=== PATIENT | male | born 1965 | race Caucasian/White ===

== ENCOUNTER → 2016-07-16 | Outpatient (CLI) | payer OTHER ==
[~2016-07-16] MED LIST: AMT50 PO; LISI-725 PO; LVT/20 PO; OXYC-57 PO
[2016-07-16 10:37] LABS: CHOLESTEROL/HDL RATIO 6.4
== END | disposition home or self-care (01) ==
LOC: C.LAB 09:03
DX: E78.5 Hyperlipidemia, unspecified (principal)

== ENCOUNTER → 2016-11-12 | Outpatient (CLI) | payer OTHER ==
[2016-11-12 09:37] LABS: MEAN CELL VOLUME 94.1 fL (80-100); MEAN CORPUSCULAR HEMOGLOBIN 32.6 pg (25-34); MEAN CORPUSCULAR HGB CONC 34.7 g/dl (32-36); PLATELET COUNT 206 K/uL (130-400); RED BLOOD COUNT 4.78 M/uL (4.7-6.1); WHITE BLOOD COUNT 8.08 K/uL (4.8-10.8)
[2016-11-12 10:10] LABS: ALT/SGPT 32 U/L (12-78); AST/SGOT 14 U/L (15-37); BLOOD UREA NITROGEN 16 mg/dl (7-18); BUN/CREATININE RATIO 13.1 (10-20); CARBON DIOXIDE 33 mmol/L (21-32); CHLORIDE 102 mmol/L (98-107); GLUCOSE 95 mg/dl (70-99); POTASSIUM 4.3 mmol/L (3.5-5.1); SODIUM 138 mmol/L (136-145)
[2016-11-12 10:13] LABS: CHOLESTEROL 253 mg/dl (0-200); HDL CHOLESTEROL 63 mg/dl; LDL CHOLESTEROL CALCULATED 149 mg/dl; TRIGLYCERIDES 206 mg/dl (0-150); VERY LOW DENSITY LIPOPROT CALC 41 mg/dl
== END | disposition home or self-care (01) ==
LOC: C.LAB 08:38
DX: E78.5 Hyperlipidemia, unspecified (principal)

== ENCOUNTER → 2017-06-10 | Outpatient (CLI) | payer OTHER ==
[2017-06-10 12:30] LABS: BLOOD UREA NITROGEN 18 mg/dl (7-18); CALCIUM 8.9 mg/dl (8.5-10.1); CARBON DIOXIDE 27 mmol/L (21-32); CREATININE 1.18 mg/dl (0.60-1.40); GLUCOSE 110 mg/dl (70-99); POTASSIUM 4.2 mmol/L (3.5-5.1); SODIUM 137 mmol/L (136-145)
[2017-06-10 12:33] LABS: CHOLESTEROL 212 mg/dl (0-200); LDL CHOLESTEROL CALCULATED 143 mg/dl
== END | disposition home or self-care (01) ==
LOC: C.LAB 10:05
DX: E78.5 Hyperlipidemia, unspecified (principal); I10 Essential (primary) hypertension

== ENCOUNTER → 2017-06-26 | Outpatient (CLI) | payer OTHER ==
--- NOTE | 2017-06-26 11:31 | DIAGNOSTIC IMAGING REPORT ---
LUMBAR SPINE W/O CONTRAST CLINICAL HISTORY: 51 years-old Male presenting with L2/L3 LUMBAR RADICULOPATHY INCR SYMPTOMS. TECHNIQUE: Multisequence, multiplanar MR imaging of the lumbar spine was performed without the use of intravenous contrast. IV contrast: None. COMPARISON: CT from 08/27/2013. FINDINGS: Localizer images: Posterior transpedicular screw and clint fixation of L2-3. Straightening of normal lumbar lordosis possibly positional. Vertebral bodies maintain normal height, alignment, and bone marrow signal intensity. Allowing for susceptibility artifact at the transpedicular screws at L2-3, no surrounding bony edema is evident. An interbody spacer is noted at the L2-3 disc space. Intervertebral disc desiccation evident at L3-4 and L4-5 without significant height loss. L1-2 and L5-S1 discs are preserved. L1-2: Minimal disc bulge results in minimal effacement of the anterior thecal sac. Mild bilateral neural foraminal narrowing. L2-3: No significant spinal canal or neural foraminal narrowing. L3-4: Facet arthropathy results in moderate right and mild left neural foraminal narrowing. No second spinal canal narrowing. L4-5: Facet arthropathy and minimal disc bulge results in mild right and moderate left neural foraminal narrowing. No second spinal canal narrowing. L5-S1: No significant neural foraminal or spinal canal narrowing. The spinal cord is in good position above the superior endplate of L1. Cauda equina normal in morphology. Paraspinal soft tissues within normal limits. IMPRESSION: 1. Postsurgical changes of L2-3 posterior fusion with interbody spacer. No hardware complication. 2. Multilevel neural foraminal narrowing most significant at L3-4 on the right. Further details as above. Electronically signed by: Sander Joshi M.D. 06/26/2017 11:29 AM Dictated Date/Time: 06/26/2017 11:24 AM
== END | disposition home or self-care (01) ==
LOC: C.MRI 10:38
DX: M54.16 Radiculopathy, lumbar region (principal)

== ENCOUNTER 2020-12-21 14:56 | Inpatient (IN) ==
[2020-12-21] MEDS ORDERED: DAPTOmycin 575 MG in SYRINGE 0 ML IV ONE (15:14)
[2020-12-21] MEDS ORDERED: SODIUM CHLORIDE 0.9% 1000ML 1,000 ML IV SCH ×2 (15:15)
[2020-12-21] MEDS ORDERED: ONDANSETRON INJ 2 MG/ML 2 ML VIAL IV STA (15:17)
--- NOTE | 2020-12-21 15:17 | Emergency Department Note ---
Impression & Plan Cellulitis of multiple sites of right hand and fingers, Cellulitis of arm, right ED Provider Note INFORMANT: Patient and ED PROVIDER(S): Nathaniel Desai MD CHIEF COMPLAINT: Right hand infection PLAN: Disposition: Admitted Condition: Good Outpatient prescription management: none Referral: None MEDICAL DECISION MAKING: Patient presented to the emergency department because of right arm and hand cellulitis. He was quite uncomfortable. He had good flexion but had difficulty extending his hand and fingers. The patient had no obvious purulent drainage or crepitus. He was tender up through the forearm and biceps area. An IV was established. The patient's lactate and CBC revealed elevations of the white blood cell count and serum lactate. He was hydrated. He was given IV clindamycin and IV daptomycin. He received IM Rocephin from his PCP. He did have cultures done. The patient underwent CT imaging of the right upper extremity. No abscess or necrotizing fasciitis seen. There was findings consistent with cellulitis as well as possible deeper space infections. I did discuss this with Dr. Mark of orthopedics. In light of the lack of abscess or findings of necrotizing fasciitis and no flexor involvement he recommended medicine admission and IV antibiotics. The case was discussed with Dr. lind. Patient will be admitted by internal medicine. Patient was reassessed frequently. He did require several doses of IV Dilaudid. His tetanus was up-to-date. He had some slight increase in his swelling during his time in the emergency department but was still doing well. Triage Nursing notes reviewed and agree them. Vital Signs: reviewed and remarkable for hypertension Differential diagnosis: Sepsis, Cellulitis, abscess, Necrotizing fasciitis, pneumonia, metabolic, electrolyte abnormalities, FB, intracerebral event, toxicologic, as well as other pathologies. Diagnostics interpreted by me: ECG: Rate: 82 Rhythm:Normal sinus [place]:Normal QRS: Low voltage ST segements:No elevation or depression Other:No PACs or PVCs Cardiac Monitoring: Cardiac monitoring ordered by me: The patient was placed on continuous cardiac monitoring and observed. It revealed a normal sinus rhythm at 69 beats per minute without ectopy or evidence of dysrhythmia. Imaging studies: CT scans of the hand, forearm, and humerus were performed. Findings consistent with cellulitis and deep space infection without evidence of necrotizing fasciitis or abscess. I refer you to the EMR for further details. HPI: The patient is a 55 year old male who presents to the Emergency Room with complaints of right hand infection. This started 5 days ago and is rapidly worsening. The patient also notes the following associated symptoms, pain and swelling extending up the right arm to the shoulder and fevers. The patient has been given IM rocephin by PCP for relieving factors. Current pain is rated as 7/10. PCP concerned for nec fasc and directed pt to emergency department. Pt denies LOC, headache, diaphoresis, visual changes, neck pain, chest pain, breathing difficulties, nausea, vomiting, abdominal pain, back pain, melena, hematochezia, urinary symptoms, numbness, weakness, lymphadenopathy, or other complaints. ROS: See above HPI for pertinent positives & negatives. A total of 10 systems reviewed and were otherwise negative. PAST MEDICAL HISTORY:See Below , HTN PAST SURGICAL HISTORY:See Below, back surgery FAMILY HISTORY:See Below SOCIAL HISTORY:See Below, HOME MEDICATIONS:See Below ALLERGIES:See Below VITALS:See Below PHYSICAL EXAMINATION: GENERAL: Awake, alert, uncomfortable -appearing, in no distress HENT: Normocephalic, atraumatic. Oropharynx unremarkable. EYES: Normal conjunctiva. Sclera non-icteric. NECK: Inspection normal. Non-tender. Supple. No nuchal rigidity. FROM. No masses. RESPIRATORY: Clear to auscultation. No wheezes. No rales. Normal respiratory effort. CARDIAC: Tachycardic rate. Normal rhythm. No murmurs. No rubs. Extremities warm and well perfused. Pulses equal. No JVD. GI: Soft, non-distended. No tenderness to palpation. No rebound or guarding. No masses. RECTAL: Deferred. MUSCULOSKELETAL: Large amount of swelling in the right hand and forearm. TTP up the right UE to the axillae. Warm to the touch. Chest examination reveals no tenderness. The back is symmetrical on inspection without obvious abnormality. There is no CVA tenderness to palpation. No joint edema. LOWER EXTREMITIES: Calves are equal size bilaterally and non-tender. No edema. No discoloration. NEURO: Normal sensorium. No sensory or motor deficits noted. SKIN: No rash or jaundice noted. Nathaniel Desai MD Past Med/Surg History Medical History Asthma HTN (hypertension), benign Lumbar radicular pain Sarcoidosis Spinal cord stimulator status had stimulator implanted, was not effective so it was explanted Surgical History History of back surgery L2-[address] Romero Social History Smoking Status: Never smoker Hx Alcohol Use: No Hx Substance Use: No Preferred Language: Mongolian Communication Ability: Effective Visual Impairment: No Limitations Hearing Ability: Normal Customer Solutions Coordinator Required: No Beliefs That Will Affect Care: None marital status: Current Living Situation: Spouse current occupational status: unemployed current occupation: Delivers bargain sheet once weekly Feels Safe at Home: Yes Safety Concerns: Feels Safe At This Time Assistive Devices: None Allergies Allergies Allergy/AdvReac Type Severity Reaction Status Date / Time No Known Allergies Allergy Unknown Verified 12/21/20 16:17 Home Meds Home Medications Medication Instructions Recorded Confirmed amitriptyline 100 mg tablet 200 mg PO HS 03/19/18 12/21/20 medical marijuana 1 dose PO UD 06/03/18 12/21/20 oxycodone-acetaminophen 5 mg-325 1 tab PO Q4H PRN 06/03/18 12/21/20 mg tablet (Percocet) lisinopril 20 1 tab PO DAILY 12/21/20 12/21/20 mg-hydrochlorothiazide 25 mg tablet sildenafil (pulm.hypertension) 20 40 - 100 mg PO UD 12/21/20 12/21/20 mg tablet Results & Data (ED) Vital Signs Vital Signs - 24 hr 12/21/20 15:05 12/21/20 15:12 12/21/20 16:06 Temperature 36.6 C Temperature Source Oral Pulse Rate 106 H Pulse Rate [Apical] Pulse Rate from SpO2 Sensor Respiratory Rate 22 18 Respiratory Effort / Characteristics Non-Labored Spontaneous Non-Labored Respiratory Depth Normal Respiratory Pattern Regular Blood Pressure 136/82 Blood Pressure [Left Arm] Blood Pressure Mean 100 Blood Pressure Mean [Left Arm] Blood Pressure Position Sitting Pulse Oximetry 95 96 Oxygen Delivery Method Room Air Room Air Sepsis Recent Fever Within 48 Hours Yes Sepsis New/Unexplained Change in Mental Status N/A Sepsis Action Taken by Nursing Physician Notified 12/21/20 17:34 12/21/20 17:35 12/21/20 18:00 Temperature Temperature Source Pulse Rate Pulse Rate [Apical] 80 Pulse Rate from SpO2 Sensor 74 80 Respiratory Rate 24 18 15 Respiratory Effort / Characteristics Non-Labored Non-Labored Spontaneous Respiratory Depth Normal Respiratory Pattern Blood Pressure 143/85 H 136/83 Blood Pressure [Left Arm] 143/85 H Blood Pressure Mean 104 100 Blood Pressure Mean [Left Arm] 104 Blood Pressure Position Pulse Oximetry 96 94 96 Oxygen Delivery Method Room Air Sepsis Recent Fever Within 48 Hours Sepsis New/Unexplained Change in Mental Status Sepsis Action Taken by Nursing 12/21/20 18:30 12/21/20 19:00 12/21/20 19:31 Temperature 37.2 C Temperature Source Pulse Rate 74 Pulse Rate [Apical] Pulse Rate from SpO2 Sensor 81 74 92 H Respiratory Rate 19 11 L 14 Respiratory Effort / Characteristics Non-Labored Respiratory Depth Respiratory Pattern Blood Pressure 118/76 122/72 145/81 H Blood Pressure [Left Arm] Blood Pressure Mean 90 88 102 Blood Pressure Mean [Left Arm] Blood Pressure Position Pulse Oximetry 92 92 96 Oxygen Delivery Method Sepsis Recent Fever Within 48 Hours Sepsis New/Unexplained Change in Mental Status Sepsis Action Taken by Nursing 12/21/20 19:39 Temperature Temperature Source Pulse Rate Pulse Rate [Apical] Pulse Rate from SpO2 Sensor Respiratory Rate Respiratory Effort / Characteristics Non-Labored Respiratory Depth Respiratory Pattern Blood Pressure Blood Pressure [Left Arm] Blood Pressure Mean Blood Pressure Mean [Left Arm] Blood Pressure Position Pulse Oximetry Oxygen Delivery Method Sepsis Recent Fever Within 48 Hours Sepsis New/Unexplained Change in Mental Status Sepsis Action Taken by Nursing Laboratory Data Result diagrams: 12/21/20 15:30 12/21/20 15:30 Lab Results 12/21/20 12/21/20 12/21/20 Range/Units 15:30 15:30 15:30 WBC 15.49 H (4.8-10.8) K/uL RBC 3.70 L (4.7-6.1) M/uL Hgb 11.8 L (14.0-18.0) g/dL Hct 35.2 L (42-52) % MCV 95.1 (80-100) fL MCH 31.9 (25-34) pg MCHC 33.5 (32-36) g/dL RDW Std Deviation 47.6 H (36.4-46.3) fL RDW Coeff of Quin 13.7 (11.5-14.5) % Plt Count 208 (130-400) K/uL MPV 8.6 (7.4-10.4) fL Immature Gran % (Auto) 2.1 % Neut % (Auto) 91.8 % Lymph % (Auto) 4.3 % [place] % (Auto) 1.7 % Eos % (Auto) 0.0 % Baso % (Auto) 0.1 % Neut # (Auto) 14.23 H (1.4-6.5) K/uL Lymph # (Auto) 0.67 L (1.2-3.4) K/uL [place] # (Auto) 0.26 (0.11-0.59) K/uL Eos # (Auto) 0.00 (0-0.5) K/uL Baso # (Auto) 0.01 (0-0.2) K/uL Immature Gran # (Auto) 0.32 H (0.00-0.02) K/uL PT 9.8 (9.0-12.0) Seconds INR 1.0 (0.9-1.1) APTT 22.5 (21.0-31.0) Seconds PTT Ratio 0.9 Sodium 142 (136-145) mmol/L Potassium 3.2 L (3.5-5.1) mmol/L Chloride 104 (98-107) mmol/L Carbon Dioxide 30 (21-32) mmol/L Anion Gap 8.0 (3-11) BUN 23 H (7-18) mg/dl Creatinine 1.34 (0.6-1.4) mg/dl Est Cr Clr Drug Dosing 85.4 ml/min Est GFR ( Amer) 68.6 ml/min Est GFR (Non-Af Amer) 59.2 ml/min BUN/Creatinine Ratio 17.2 (10-20) Glucose 154 H (70-99) mg/dl Lactate (0.4-2.0) mmol/L Calcium 9.1 (8.5-10.1) mg/dl Magnesium 2.0 (1.8-2.4) mg/dl Total Bilirubin 0.3 (0.2-1) mg/dl AST 18 (15-37) U/L ALT 38 (12-78) U/L Alkaline Phosphatase 41 L (45-117) U/L Total Creatine Kinase (39-308) U/L C-Reactive Protein (0-0.29) mg/dl Total Protein 6.6 (6.4-8.2) gm/dl Albumin 3.0 L (3.4-5.0) gm/dl Globulin 3.6 (2.5-4.0) gm/dl Albumin/Globulin Ratio 0.8 L (0.9-2) Procalcitonin (0-0.5) ng/ml Urine Color Urine Appearance (Clear) Urine pH (4.5-7.5) Ur Specific Bee (1.000-1.030) Urine Protein (Negative) Urine Glucose (UA) (Negative) Urine Ketones (Negative) Urine Blood (Negative) Urine Nitrite (Negative) Urine Bilirubin (Negative) Urine Urobilinogen (Negative) Ur Leukocyte Esterase (Negative) COVID-19 Eval Order SARS-CoV-2 (PCR) (Negative) 12/21/20 12/21/20 12/21/20 Range/Units 15:30 15:30 15:30 WBC (4.8-10.8) K/uL RBC (4.7-6.1) M/uL Hgb (14.0-18.0) g/dL Hct (42-52) % MCV (80-100) fL MCH (25-34) pg MCHC (32-36) g/dL RDW Std Deviation (36.4-46.3) fL RDW Coeff of Quin (11.5-14.5) % Plt Count (130-400) K/uL MPV (7.4-10.4) fL Immature Gran % (Auto) % Neut % (Auto) % Lymph % (Auto) % [place] % (Auto) % Eos % (Auto) % Baso % (Auto) % Neut # (Auto) (1.4-6.5) K/uL Lymph # (Auto) (1.2-3.4) K/uL [place] # (Auto) (0.11-0.59) K/uL Eos # (Auto) (0-0.5) K/uL Baso # (Auto) (0-0.2) K/uL Immature Gran # (Auto) (0.00-0.02) K/uL PT (9.0-12.0) Seconds INR (0.9-1.1) APTT (21.0-31.0) Seconds PTT Ratio Sodium (136-145) mmol/L Potassium (3.5-5.1) mmol/L Chloride (98-107) mmol/L Carbon Dioxide (21-32) mmol/L Anion Gap (3-11) BUN (7-18) mg/dl Creatinine (0.6-1.4) mg/dl Est Cr Clr Drug Dosing ml/min Est GFR ( Amer) ml/min Est GFR (Non-Af Amer) ml/min BUN/Creatinine Ratio (10-20) Glucose (70-99) mg/dl Lactate 2.4 H* (0.4-2.0) mmol/L Calcium (8.5-10.1) mg/dl Magnesium (1.8-2.4) mg/dl Total Bilirubin (0.2-1) mg/dl AST (15-37) U/L ALT (12-78) U/L Alkaline Phosphatase (45-117) U/L Total Creatine Kinase 236 (39-308) U/L C-Reactive Protein 4.91 H (0-0.29) mg/dl Total Protein (6.4-8.2) gm/dl Albumin (3.4-5.0) gm/dl Globulin (2.5-4.0) gm/dl Albumin/Globulin Ratio (0.9-2) Procalcitonin < 0.05 (0-0.5) ng/ml Urine Color Urine Appearance (Clear) Urine pH (4.5-7.5) Ur Specific Bee (1.000-1.030) Urine Protein (Negative) Urine Glucose (UA) (Negative) Urine Ketones (Negative) Urine Blood (Negative) Urine Nitrite (Negative) Urine Bilirubin (Negative) Urine Urobilinogen (Negative) Ur Leukocyte Esterase (Negative) COVID-19 Eval Order SARS-CoV-2 (PCR) (Negative) 12/21/20 12/21/20 12/21/20 Range/Units 16:17 17:40 17:40 WBC (4.8-10.8) K/uL RBC (4.7-6.1) M/uL Hgb (14.0-18.0) g/dL Hct (42-52) % MCV (80-100) fL MCH (25-34) pg MCHC (32-36) g/dL RDW Std Deviation (36.4-46.3) fL RDW Coeff of Quin (11.5-14.5) % Plt Count (130-400) K/uL MPV (7.4-10.4) fL Immature Gran % (Auto) % Neut % (Auto) % Lymph % (Auto) % [place] % (Auto) % Eos % (Auto) % Baso % (Auto) % Neut # (Auto) (1.4-6.5) K/uL Lymph # (Auto) (1.2-3.4) K/uL [place] # (Auto) (0.11-0.59) K/uL Eos # (Auto) (0-0.5) K/uL Baso # (Auto) (0-0.2) K/uL Immature Gran # (Auto) (0.00-0.02) K/uL PT (9.0-12.0) Seconds INR (0.9-1.1) APTT (21.0-31.0) Seconds PTT Ratio Sodium (136-145) mmol/L Potassium (3.5-5.1) mmol/L Chloride (98-107) mmol/L Carbon Dioxide (21-32) mmol/L Anion Gap (3-11) BUN (7-18) mg/dl Creatinine (0.6-1.4) mg/dl Est Cr Clr Drug Dosing ml/min Est GFR ( Amer) ml/min Est GFR (Non-Af Amer) ml/min BUN/Creatinine Ratio (10-20) Glucose (70-99) mg/dl Lactate (0.4-2.0) mmol/L Calcium (8.5-10.1) mg/dl Magnesium (1.8-2.4) mg/dl Total Bilirubin (0.2-1) mg/dl AST (15-37) U/L ALT (12-78) U/L Alkaline Phosphatase (45-117) U/L Total Creatine Kinase (39-308) U/L C-Reactive Protein (0-0.29) mg/dl Total Protein (6.4-8.2) gm/dl Albumin (3.4-5.0) gm/dl Globulin (2.5-4.0) gm/dl Albumin/Globulin Ratio (0.9-2) Procalcitonin (0-0.5) ng/ml Urine Color Yellow Urine Appearance Clear (Clear) Urine pH 7.5 (4.5-7.5) Ur Specific Bee 1.018 (1.000-1.030) Urine Protein Negative (Negative) Urine Glucose (UA) Negative (Negative) Urine Ketones Negative (Negative) Urine Blood Negative (Negative) Urine Nitrite Negative (Negative) Urine Bilirubin Negative (Negative) Urine Urobilinogen Negative (Negative) Ur Leukocyte Esterase Negative (Negative) COVID-19 Eval Order Covid19 at [facility] SARS-CoV-2 (PCR) NEGATIVE (Negative) 12/21/20 Range/Units 17:44 WBC (4.8-10.8) K/uL RBC (4.7-6.1) M/uL Hgb (14.0-18.0) g/dL Hct (42-52) % MCV (80-100) fL MCH (25-34) pg MCHC (32-36) g/dL RDW Std Deviation (36.4-46.3) fL RDW Coeff of Quin (11.5-14.5) % Plt Count (130-400) K/uL MPV (7.4-10.4) fL Immature Gran % (Auto) % Neut % (Auto) % Lymph % (Auto) % [place] % (Auto) % Eos % (Auto) % Baso % (Auto) % Neut # (Auto) (1.4-6.5) K/uL Lymph # (Auto) (1.2-3.4) K/uL [place] # (Auto) (0.11-0.59) K/uL Eos # (Auto) (0-0.5) K/uL Baso # (Auto) (0-0.2) K/uL Immature Gran # (Auto) (0.00-0.02) K/uL PT (9.0-12.0) Seconds INR (0.9-1.1) APTT (21.0-31.0) Seconds PTT Ratio Sodium (136-145) mmol/L Potassium (3.5-5.1) mmol/L Chloride (98-107) mmol/L Carbon Dioxide (21-32) mmol/L Anion Gap (3-11) BUN (7-18) mg/dl Creatinine (0.6-1.4) mg/dl Est Cr Clr Drug Dosing ml/min Est GFR ( Amer) ml/min Est GFR (Non-Af Amer) ml/min BUN/Creatinine Ratio (10-20) Glucose (70-99) mg/dl Lactate 1.5 (0.4-2.0) mmol/L Calcium (8.5-10.1) mg/dl Magnesium (1.8-2.4) mg/dl Total Bilirubin (0.2-1) mg/dl AST (15-37) U/L ALT (12-78) U/L Alkaline Phosphatase (45-117) U/L Total Creatine Kinase (39-308) U/L C-Reactive Protein (0-0.29) mg/dl Total Protein (6.4-8.2) gm/dl Albumin (3.4-5.0) gm/dl Globulin (2.5-4.0) gm/dl Albumin/Globulin Ratio (0.9-2) Procalcitonin (0-0.5) ng/ml Urine Color Urine Appearance (Clear) Urine pH (4.5-7.5) Ur Specific Bee (1.000-1.030) Urine Protein (Negative) Urine Glucose (UA) (Negative) Urine Ketones (Negative) Urine Blood (Negative) Urine Nitrite (Negative) Urine Bilirubin (Negative) Urine Urobilinogen (Negative) Ur Leukocyte Esterase (Negative) COVID-19 Eval Order SARS-CoV-2 (PCR) (Negative) Administered Medications Amitriptyline HCl (Amitriptyline Hcl 100 Mg Tab) 200 mg PO HS RUMA Stop: 01/20/21 21:15 Last Admin: 12/21/20 21:58 Dose: 200 mg Documented by: [id number] Heparin Sodium (Porcine) (Heparin Sod 5,000 Unit/0.5 Ml Vial) 5,000 units SQ Q12 RUMA Stop: 01/20/21 21:29 Last Admin: 12/21/20 21:58 Dose: 5,000 units Documented by: [id number] Hydromorphone HCl (Hydromorphone Inj 0.5 Mg/0.5 Ml Syr) 0.5 mg IV Q6H PRN PRN Reason: Severe Pain Stop: 01/04/21 21:15 Last Admin: 12/21/20 23:27 Dose: 0.5 mg Documented by: [id number] Ertapenem 1,000 mg/ Sodium (Chloride) 60 mls @ 100 mls/hr IV Q24H [facility] Stop: 12/28/20 21:29 Last Infusion: 12/21/20 22:38 Dose: 0 mls/hr Documented by: [id number] Admin: 12/21/20 21:58 Dose: 100 mls/hr Documented by: [id number] Oxycodone/Acetaminophen (Oxycodone/Acetaminophen 5mg/325mg Tab) 1 tab PO Q4H PRN PRN Reason: Pain Stop: 01/04/21 21:15 Last Admin: 12/21/20 21:59 Dose: 1 tab Documented by: [id number] Discontinued Medications Hydromorphone HCl (Hydromorphone Inj 0.5 Mg/0.5 Ml Syr) 0.5 mg IV Q15M PRN PRN Reason: Pain Stop: 01/04/21 15:16 Last Admin: 12/21/20 19:36 Dose: 0.5 mg Documented by: [id number] Admin: 12/21/20 16:19 Dose: 0.5 mg Documented by: [id number] Sodium Chloride (Nss 1000ml) 1,000 mls @ 999 mls/hr IV .Q1H1M RUMA Stop: 12/21/20 16:15 Last Infusion: 12/21/20 18:51 Dose: 0 mls/hr Documented by: [id number] Admin: 12/21/20 16:19 Dose: 999 mls/hr Documented by: [id number] Sodium Chloride (Nss 1000ml) 1,000 mls @ 150 mls/hr IV .Q6H40M RUMA Stop: 01/20/21 15:14 Last Infusion: 12/21/20 21:20 Dose: 0 mls/hr Documented by: [id number] Admin: 12/21/20 18:52 Dose: 150 mls/hr Documented by: [id number] Daptomycin 575 mg/ Syringe 11.5 mls @ 5.75 mls/min IV NOW ONE; Protocol Stop: 12/21/20 15:15 Last Admin: 12/21/20 17:10 Dose: 5.75 mls/min Documented by: [id number] Clindamycin Phosphate 900 mg/ (Dextrose) 56 mls @ 112 mls/hr IV ONE ONE Stop: 12/21/20 15:53 Last Infusion: 12/21/20 18:51 Dose: 0 mls/hr Documented by: [id number] Admin: 12/21/20 17:10 Dose: 112 mls/hr Documented by: [id number] Ioversol (Optiray 320 100ml) 95 ml IV ONCE ONE Stop: 12/21/20 16:51 Last Admin: 12/21/20 16:50 Dose: 95 ml Documented by: [id number] Ondansetron HCl (Ondansetron Inj 2 Mg/Ml 2 Ml Vial) 4 mg IV NOW STA Stop: 12/21/20 15:18 Last Admin: 12/21/20 16:19 Dose: 4 mg Documented by: [id number] Imaging Data Radiologist's Impression: Chest X-Ray 12/21/20 15:12 XR chest 1V portable HISTORY: 55 years-old Male SEPSIS acute sepsis COMPARISON: Chest radiographs 04/27/2020 TECHNIQUE: Portable AP view of the chest FINDINGS: Cardiomediastinal and hilar silhouettes are within normal limits. No pneumothorax, pleural effusion, airspace consolidation or overt pulmonary edema. IMPRESSION: No acute process. ACT 112: Negative or not required by law. The above report was generated using voice recognition software. It may contain grammatical, syntax or spelling errors. Electronically signed by: Randall Valentino M.D. 12/21/2020 4:[address] 12/21/20 15:12 CT humerus RT w con, CT forearm RT w con, CT hand RT w con HISTORY: 55 years-old Male infection patient presents with soft tissue infection of the right upper extremity. COMPARISON: None TECHNIQUE: Multiple axial CT images of the right humerus, forearm and hand were obtained following the intravenous ministration of 95 mL Optiray 320. A dose lowering technique was used consistent with the principals of ALARA. FINDINGS: HUMERUS: Evaluation of the soft tissues demonstrates no significant inflammation or fluid collection. Tendons and ligaments are not well evaluated by CT technique. No adenopathy identified. There is mild glenohumeral with moderate AC joint osteoarthritis. No acute fracture, dislocation, osseous erosion or suspicious bone lesion. FOREARM: There is mild circumferential subcutaneous edema involving the mid to distal forearm. No drainable collection or soft tissue mass identified. Mild osteoarthritis of the elbow with a linear 4 x 10 mm bone fragment abutting the coronoid process is suggestive of osteophytic spurring. No acute fracture, dislocation or osseous erosion. HAND: Mild to moderate dorsal subcutaneous edema of the hand and wrist. The study is limited secondary to beam hardening artifact. Questioned associated dorsal intramuscular edema and possible extensor tenosynovitis. No fluid collection. Tendons and ligaments are not well evaluated by CT technique. 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 No acute fracture, dislocation or osseous erosion. IMPRESSION: 1. No acute fracture, dislocation or osseous erosion. 2. Subcutaneous edema of the dorsal forearm, hand and wrist is suggestive of cellulitis. No abscess identified. 3. Questioned myositis and possible tenosynovitis of the dorsal hand. 4. Multifocal osteoarthritis as above. ACT 112: Negative or not required by law. The above report was generated using voice recognition software. It may contain grammatical, syntax or spelling errors. Electronically signed by: Randall Valentino M.D. 12/21/2020 5:[address] 12/21/20 15:12 CT humerus RT w con, CT forearm RT w con, CT hand RT w con HISTORY: 55 years-old Male infection patient presents with soft tissue infection of the right upper extremity. COMPARISON: None TECHNIQUE: Multiple axial CT images of the right humerus, forearm and hand were obtained following the intravenous ministration of 95 mL Optiray 320. A dose lowering technique was used consistent with the principals of ALARA. FINDINGS: HUMERUS: Evaluation of the soft tissues demonstrates no significant inflammation or fluid collection. Tendons and ligaments are not well evaluated by CT technique. No adenopathy identified. There is mild glenohumeral with moderate AC joint osteoarthritis. No acute fracture, dislocation, osseous erosion or suspicious bone lesion. FOREARM: There is mild circumferential subcutaneous edema involving the mid to distal forearm. No drainable collection or soft tissue mass identified. Mild osteoarthritis of the elbow with a linear 4 x 10 mm bone fragment abutting the coronoid process is suggestive of osteophytic spurring. No acute fracture, dislo cation or osseous erosion. HAND: Mild to moderate dorsal subcutaneous edema of the hand and wrist. The study is limited secondary to beam hardening artifact. Questioned associated dorsal intramuscular edema and possible extensor tenosynovitis. No fluid collection. Tendons and ligaments are not well evaluated by CT technique. 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 No acute fracture, dislocation or osseous erosion. IMPRESSION: 1. No acute fracture, dislocation or osseous erosion. 2. Subcutaneous edema of the dorsal forearm, hand and wrist is suggestive of ce llulitis. No abscess identified. 3. Questioned myositis and possible tenosynovitis of the dorsal hand. 4. Multifocal osteoarthritis as above. ACT 112: Negative or not required by law. The above report was generated using voice recognition software. It may contain grammatical, syntax or spelling errors. Electronically signed by: Randall Valentino M.D. 12/21/2020 5:[address] 12/21/20 15:12 CT humerus RT w con, CT forearm RT w con, CT hand RT w con HISTORY: 55 years-old Male infection patient presents with soft tissue infection of the right upper extremity. COMPARISON: None TECHNIQUE: Multiple axial CT images of the right humerus, forearm and hand were obtained following the intravenous ministration of 95 mL Optiray 320. A dose lowering technique was used consistent with the principals of ROLO. FINDINGS: HUMERUS: Evaluation of the soft tissues demonstrates no significant inflammation or fluid collection. Tendons and ligaments are not well evaluated by CT technique. No adenopathy identified. There is mild glenohumeral with moderate AC joint osteoarthritis. No acute fracture, dislocation, osseous erosion or suspicious bone lesion. FOREARM: There is mild circumferential subcutaneous edema involving the mid to distal forearm. No drainable collection or soft tissue mass identified. Mild osteoarthritis of the elbow with a linear 4 x 10 mm bone fragment abutting the coronoid process is suggestive of osteophytic spurring. No acute fracture, dislocation or osseous erosion. HAND: Mild to moderate dorsal subcutaneous edema of the hand and wrist. The study is limited secondary to beam hardening artifact. Questioned associated dorsal intramuscular edema and possible extensor tenosynovitis. No fluid collection. Tendons and ligaments are not well evaluated by CT technique. 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 No acute fracture, dislocation or osseous erosion. IMPRESSION: 1. No acute fracture, dislocation or osseous erosion. 2. Subcutaneous edema of the dorsal forearm, hand and wrist is suggestive of cellulitis. No abscess identified. 3. Questioned myositis and possible tenosynovitis of the dorsal hand. 4. Multifocal osteoarthritis as above. ACT 112: Negative or not required by law. The above report was generated using voice recognition software. It may contain grammatical, syntax or spelling errors. Electronically signed by: Randall Valentino M.D. 12/21/2020 5:27 PM Discharge Plan Visit Data Chief Complaint: Infection Stated Complaint: INFECTION IN R ARM, REFER BY DR. ALHAJI ACEVEDO ED Provider: Nathaniel Desai Discharge Problem: Cellulitis of multiple sites of right hand and fingers, Cellulitis of arm, right Patient Disposition: Admitted As Inpatient Discharge Instructions Interventions: ED Discharge Assessment Last Done: 12/21/20 20:50
[2020-12-21] MEDS ORDERED: CLINDAMYCIN 900 MG in DEXTROSE 5% 50 ML IV ONE (15:24)
[2020-12-21 16:01] LABS: Basophils # (auto) 0.01 K/uL (0-0.2); Basophils % (auto) 0.1 %; Hematocrit (blood only) 35.2 % (42-52); Hemoglobin 11.8 g/dL (14.0-18.0); Immature Granulocytes # (auto) 0.32 K/uL (0.00-0.02); Immature Granulocytes % (auto) 2.1 %; Lymphocytes # (auto) 0.67 K/uL (1.2-3.4); Lymphocytes % (auto) 4.3 %; Mean Corpuscular Hemoglobin 31.9 pg (25-34); Mean Corpuscular Hgb Conc 33.5 g/dL (32-36); Mean Corpuscular Volume 95.1 fL (80-100); Mean Platelet Volume 8.6 fL (7.4-10.4); Monocytes # (auto) 0.26 K/uL (0.11-0.59); Monocytes % (auto) 1.7 %; Neutrophils # (auto) 14.23 K/uL (1.4-6.5); Neutrophils % (auto) 91.8 %; Platelet Count 208 K/uL (130-400); RDW Coefficient of Variation 13.7 % (11.5-14.5); RDW Standard Deviation 47.6 fL (36.4-46.3); White Blood Count 15.49 K/uL (4.8-10.8)
[2020-12-21 16:15] LABS: Partial Thromboplastin Ratio 0.9; Partial Thromboplastin Time 22.5 Seconds (21.0-31.0); Prothrombin Time 9.8 Seconds (9.0-12.0)
--- NOTE | 2020-12-21 16:17 | XRay Report ---
XR chest 1V portable HISTORY: 55 years-old Male SEPSIS acute sepsis COMPARISON: Chest radiographs 04/27/2020 TECHNIQUE: Portable AP view of the chest FINDINGS: Cardiomediastinal and hilar silhouettes are within normal limits. No pneumothorax, pleural effusion, airspace consolidation or overt pulmonary edema. IMPRESSION: No acute process. ACT 112: Negative or not required by law. The above report was generated using voice recognition software. It may contain grammatical, syntax o r spelling errors. Electronically signed by: Radnall Valentino M.D. 12/21/2020 4:15 PM
[2020-12-21 16:18] LABS: BUN Creatinine Ratio 17.2 (10-20); Calcium 9.1 mg/dl (8.5-10.1); Creatinine Clr Calc Pharmacy 85.4 ml/min; Est GFR (African American) 68.6 ml/min; Est GFR (Non-African American) 59.2 ml/min; Potassium 3.2 mmol/L (3.5-5.1)
[2020-12-21] MEDS: HYDROmorphone INJ 0.5 MG/0.5 ML SYR IV PRN ×3 (16:19→23:27)
[2020-12-21 16:21] LABS: Albumin Globulin Ratio 0.8 (0.9-2); Bilirubin,Total 0.3 mg/dl (0.2-1); Globulin 3.6 gm/dl (2.5-4.0); Total Protein 6.6 gm/dl (6.4-8.2)
[2020-12-21] MEDS ORDERED: OPTIRAY 320 100ml IV ONE (16:50)
--- NOTE | 2020-12-21 17:28 | CT Scan Report ---
CT humerus RT w con, CT forearm RT w con, CT hand RT w con HISTORY: 55 years-old Male infection patient presents with soft tissue infection of the right upper extremity. COMPARISON: None TECHNIQUE: Multiple axial CT images of the right humerus, forearm and hand were obtained following th e intravenous ministration of 95 mL Optiray 320. A dose lowering technique was used consistent with sandra contreras principals of ROLO. FINDINGS: HUMERUS: Evaluation of the soft tissues demonstrates no significant inflammation or fluid collection. Tendons and ligaments are not well evaluated by CT technique. No adenopathy identified. There is mild glenohu meral with moderate AC joint osteoarthritis. No acute fracture, dislocation, osseous erosion or suspi cious bone lesion. FOREARM: There is mild circumferential subcutaneous edema involving the mid to distal forearm. No drainable co llection or soft tissue mass identified. Mild osteoarthritis of the elbow with a linear 4 x 10 mm bon e fragment abutting the coronoid process is suggestive of osteophytic spurring. No acute fracture, di slocation or osseous erosion. HAND: Mild to moderate dorsal subcutaneous edema of the hand and wrist. The study is limited secondary to b eam hardening artifact. Questioned associated dorsal intramuscular edema and possible extensor tenosy novitis. No fluid collection. Tendons and ligaments are not well evaluated by CT technique. Multifoca l osteoarthritis, moderate to severe within the first carpal metacarpal joint. No acute fracture, dis location or osseous erosion. IMPRESSION: 1. No acute fracture, dislocation or osseous erosion. 2. Subcutaneous edema of the dorsal forearm, hand and wrist is suggestive of cellulitis. No abscess i dentified. 3. Questioned myositis and possible tenosynovitis of the dorsal hand. 4. Multifocal osteoarthritis as above. ACT 112: Negative or not required by law. The above report was generated using voice recognition software. It may contain grammatical, syntax o r spelling errors. Electronically signed by: Randall Valentino M.D. 12/21/2020 5:27 PM
[2020-12-21 18:35] LABS: Appearance Urine Clear (Clear); Bilirubin Urine Negative (Negative); Blood Urine Negative (Negative); Color Urine Yellow; Glucose Urine UA Negative (Negative); Ketones Urine Negative (Negative); Leukocyte Esterase Urine Negative (Negative); Nitrite Urine Negative (Negative); Protein Urine Negative (Negative); Specific Gravity Urine 1.018 (1.000-1.030); Urobilinogen Urine Negative (Negative); pH Urine 7.5 (4.5-7.5)
[2020-12-21] MEDS ORDERED: ACETAMINOPHEN 325 MG TAB PO PRN (19:44)
--- NOTE | 2020-12-21 19:45 | History & Physical Report ---
Date of Service December 21, 2020 Assessment & Plan (1) Cellulitis of multiple sites of right hand and fingers: Plan: Will admitpatient for above porblem. Imipenem will be statrted. cultures ordered. consult ortho. No signs of nectroizing fasciitis on ct scan. (2) Asthma: Plan: apperas controled. not on meds (3) HTN (hypertension), benign: Plan: BP at goal. resume home meds. History of Present Illness Chief Complaint: swollen right hand Primary Care Provider: Obi Gee Jr, DO 55 yo male arrives to the hospital for right hand swellin. Patient reports he may have injured his hand with a screw about 2 weeks ago. Since then he reports intermittent swelling in his fingers, which subsided. However now he is reporting that his hand has becoming more swollen over the past 5 days. His hand is more swollen and is having moderate to severe pain. He is having loss of extension of his fingers, which prompted him to go see his PCP. His PCP then referred him to te ER. Pt denies LOC, headache, diaphoresis, visual changes, neck pain, chest pain, breathing difficulties, nausea, vomiting, abdominal pain, back pain, melena, hematochezia, urinary symptoms, numbness, weakness, lymphadenopathy, or other complaints. Allergies Allergy/AdvReac Type Severity Reaction Status Date / Time No Known Allergies Allergy Unknown Verified 12/21/20 16:17 Home Medications Medication Instructions Recorded Confirmed Type amitriptyline 100 mg tablet 200 mg PO HS 03/19/18 12/21/20 History medical marijuana 1 dose PO UD 06/03/18 12/21/20 History oxycodone-acetaminophen 5 mg-325 1 tab PO Q4H PRN 06/03/18 12/21/20 History mg tablet (Percocet) lisinopril 20 1 tab PO DAILY 12/21/20 12/21/20 History mg-hydrochlorothiazide 25 mg tablet sildenafil (pulm.hypertension) 20 40 - 100 mg PO UD 12/21/20 12/21/20 History mg tablet Past Med/Surg History Medical History Asthma HTN (hypertension), benign Lumbar radicular pain Sarcoidosis Spinal cord stimulator status had stimulator implanted, was not effective so it was explanted Surgical History History of back surgery L2-[address] Romero Social History Smoking Status: Never smoker Hx Alcohol Use: No Hx Substance Use: No Preferred Language: Portuguese Communication Ability: Effective Visual Impairment: No Limitations Hearing Ability: Normal Housekeeping Worker Required: No Beliefs That Will Affect Care: None marital status: Current Living Situation: Spouse current occupational status: unemployed current occupation: Delivers bargain sheet once weekly Feels Safe at Home: Yes Safety Concerns: Feels Safe At This Time Assistive Devices: None Review of Systems Constitutional: + fever; no sweats Eyes: no blind spots and no diplopia Ear, Nose, Mouth, Throat: no ear pain and no ear trauma Respiratory: no cough and no change in sputum Cardiovascular: no chest pain and no chest pain with activity Gastrointestinal: no abdominal pain and no bloating Genitourinary: no dysuria or no urinary frequency Musculoskeletal: no back pain and no radicular pain Integumentary: no acne and no rash Neurologic: no gait abnormality and no falls Psychiatric: no behavioral changes and no hopelessness Endocrine: no fatigue and no polydipsia Hematologic / Lymphatic: no easy bleeding Physical Exam Constitutional: WD/WN, vitals as above Eyes: PERRL, conjunctivae normal, anicteric sclerae ENMT: external ear and nose normal, oropharynx normal Neck: trachea midline, no thyromegaly Respiratory: normal respiratory effort, lungs clear to auscultation Cardiovascular: RRR, no murmur, no edema Gastrointestinal (Abdomen): normal bowel sounds, soft, nontender, no hepatosplenomegaly Musculoskeletal: Right hand is swollen, and erythematous. 3rd, 4TH AND 5TH digit appear flexed. Patient is able to fulluy flex his hand. However he does not have good extension of his digits. Skin: no rashes, warm and dry Neurologic: PERRL, EOMI, accommodation nl, no face palsy, no dysarthria Psychiatric: A+Ox3, euthymic affect Genitourinary: no testicular masses, no penis abnormality Lymphatic: no cervical or axillary lymphadenopathy Results & Data Results & Data ([facility]) Vital Signs (Past 12 Hours) Vital Signs Temp Pulse Pulse Resp BP BP Pulse Ox 12/21/20 19:31 14 145/81 H 96 12/21/20 19:00 74 11 L 122/72 92 12/21/20 18:30 37.2 C 19 118/76 92 12/21/20 18:00 15 136/83 96 12/21/20 17:35 80 18 143/85 H 94 12/21/20 17:34 24 143/85 H 96 12/21/20 16:06 18 12/21/20 15:12 96 12/21/20 15:05 36.6 C 106 H 22 136/82 95 Code Status & VTE Plan VTE Prophylaxis Plan VTE Prophylaxis will be ordered: Yes PG Care Time/CCT Total # of Minutes Spent Total Time Spent with Patient: Total time spent is greater than 50% in coordination of care (as documented) at patient's floor/unit and/or counseling patient: Coding Level of Care Code 81240 Initial Inpt Care Lvl 3 Diagnoses Cellulitis of multiple sites of right hand and fingers L03.011; L03.113 Asthma J45.909 HTN (hypertension), benign I10
[2020-12-21 20:07] LABS: C Reactive Protein 4.91 mg/dl (0-0.29)
[2020-12-21] MEDS: ERTAPENEM SODIUM 1,000 MG in SODIUM CHLORIDE 0.9% 50 ML IV SCH (21:58)
[2020-12-21] MEDS: HEPARIN SOD 5,000 UNIT/0.5 ML VIAL SQ SCH (21:58)
[2020-12-21] MEDS: AMITRIPTYLINE HCL 100 MG TAB PO SCH (21:58)
[2020-12-21] MEDS: oxyCODONE/ACETAMINOPHEN 5mg/325mg TAB PO PRN (21:59)
[2020-12-21] MEDS ORDERED: HYDROmorphone INJ 1 MG/ML SYRINGE IV STA (23:57)
[2020-12-22] MEDS: oxyCODONE/ACETAMINOPHEN 5mg/325mg TAB PO PRN ×3 (02:16→11:30)
[2020-12-22] MEDS: HYDROmorphone INJ 0.5 MG/0.5 ML SYR IV PRN ×4 (05:44→12:01)
[2020-12-22 06:11] LABS: Basophils # (auto) 0.01 K/uL (0-0.2); Basophils % (auto) 0.1 %; Eosinophils # (auto) 0.01 K/uL (0-0.5); Eosinophils % (auto) 0.1 %; Hematocrit (blood only) 34.6 % (42-52); Hemoglobin 11.4 g/dL (14.0-18.0); Immature Granulocytes # (auto) 0.26 K/uL (0.00-0.02); Immature Granulocytes % (auto) 1.9 %; Lymphocytes # (auto) 1.23 K/uL (1.2-3.4); Mean Corpuscular Hemoglobin 31.6 pg (25-34); Mean Corpuscular Hgb Conc 32.9 g/dL (32-36); Mean Corpuscular Volume 95.8 fL (80-100); Mean Platelet Volume 8.6 fL (7.4-10.4); Monocytes # (auto) 0.97 K/uL (0.11-0.59); Monocytes % (auto) 7.1 %; Neutrophils # (auto) 11.12 K/uL (1.4-6.5); Neutrophils % (auto) 81.8 %; Platelet Count 190 K/uL (130-400); RDW Coefficient of Variation 13.8 % (11.5-14.5); RDW Standard Deviation 48.3 fL (36.4-46.3); Red Blood Count 3.61 M/uL (4.7-6.1)
[2020-12-22 06:40] LABS: BUN Creatinine Ratio 17.7 (10-20); Calcium 8.4 mg/dl (8.5-10.1); Creatinine Clr Calc Pharmacy 122.1 ml/min; Est GFR (African American) 108.1 ml/min; Est GFR (Non-African American) 93.3 ml/min; Magnesium 2.1 mg/dl (1.8-2.4); Potassium 2.7 mmol/L (3.5-5.1)
[2020-12-22] MEDS ORDERED: POTASSIUM CHLORIDE CRTAB 20 MEQ TABCR PO STA (06:58)
[2020-12-22] MEDS: POTASSIUM ACETATE/NSS 10 MEQ/105 ML BAG IV SCH ×2 (07:36→08:35)
[2020-12-22] MEDS: CALCIUM CARBONATE 500 MG CHEWABLE TAB PO PRN (08:35)
[2020-12-22] MEDS: LISINOPRIL/HCTZ 20/25MG 1 TAB PO SCH (08:39)
[2020-12-22] MEDS: HEPARIN SOD 5,000 UNIT/0.5 ML VIAL SQ SCH ×2 (08:39→20:44)
--- NOTE | 2020-12-22 09:21 | Hospitalist Progress Note ---
Date of Service December 22, 2020 Assessment & Plan (1) Cellulitis of multiple sites of right hand and fingers: Plan: Patient continues to have above problem. Will add MRSA coevrage this AM: Daptomycin. Continue with Imipenem. Will recommend holding off NSAIDs due to possibility of increasing duration of antibiotics and possible link with soft tissue infection Imipenem will be continued. cultures ordered. consult ortho: awaiting input. No signs of necrotizing fasciitis on ct scan. will keep right hand above heart level to help decrease swelling. (2) Asthma: Plan: appears controled. not on meds (3) HTN (hypertension), benign: Plan: BP at goal. resume home meds. Admission and Anticipated Discharge Date Admission Date: December 21, 2020 Subjective Patient reports having more pain today in his hand. He feels that his digits are more flexed today. Patient denies subjective, fever, chills. Review of Systems Review of Systems: All systems reviewed & are unremarkable except as noted in HPI & below Physical Exam Constitutional: WD/WN, vitals as above Eyes: PERRL, conjunctivae normal, anicteric sclerae ENMT: external ear and nose normal, oropharynx normal Neck: trachea midline, no thyromegaly Respiratory: normal respiratory effort, lungs clear to auscultation Cardiovascular: RRR, no murmur, no edema Gastrointestinal (Abdomen): normal bowel sounds, soft, nontender, no hepatosplenomegaly Musculoskeletal: Right hand continues to appear swollen. No significant changes from yesterday. Patient is able to extend each digit except the 5th digit. 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 Skin: no rashes, warm and dry Neurologic: PERRL, EOMI, accommodation nl, no face palsy, no dysarthria Psychiatric: A+Ox3, euthymic affect Genitourinary: no testicular masses, no penis abnormality Lymphatic: no cervical or axillary lymphadenopathy Results & Data Results & Data ([facility]) Vital Signs (Past 12 Hours) Vital Signs Temp Pulse Pulse Resp BP Pulse Ox 12/22/20 07:30 36.6 C 80 18 130/76 95 12/22/20 00:34 36.5 C 74 138/77 95 PG Care Time/CCT Total # of Minutes Spent Total Time Spent with Patient: Total time spent is greater than 50% in coordination of care (as documented) at patient's floor/unit and/or counseling patient: Coding Level of Care Code 60662 Subseq Hosp Care Lvl 3 Diagnoses Cellulitis of multiple sites of right hand and fingers L03.011; L03.113 Asthma J45.909 HTN (hypertension), benign I10 Time Spent (min) 35
[2020-12-22] MEDS: POTASSIUM CHLORIDE / WTR 10 MEQ/100 ML PLCT IV SCH ×2 (09:52→11:09)
[2020-12-22] MEDS ORDERED: KETOROLAC 30 MG/ML VIAL IV ONE (12:53)
[2020-12-22] MEDS ORDERED: oxyCODONE HCL IR 5 MG TAB (IMMEDIATE RELEASE) PO PRN (12:53)
--- NOTE | 2020-12-22 13:12 | Orthopedic Consultation ---
Date of Consultation December 22, 2020 Assessment & Plan (1) Cellulitis of multiple sites of right hand and fingers: Diffuse cellulitis of the right hand. CT scan of the right upper extremity showing no obvious abscesses and question of myositis and tenosynovitis. I discussed the case with Dr. Ramírez. Continue his n.p.o. status. Plan for MRI of his hand and forearm. Review MRI once done and make further plans at that time. History of Present Illness Reason for Consultation: Right hand cellulitis Attending Physician: Ketan Roman History of Present Illness Patient is a 55-year-old male who injured his hand approximate 2 weeks ago with a type of screw. The area was cleaned and he was watching it. Over time he would have some swelling in the dorsum of the hand and the fingers of which would come and go. Within the last 4 to 5 days prior to admission the swelling continued to remain and began having increased pain. He noticed increased erythema that was starting to go up his forearm and he came into the emergency room to be seen. He was seen by the staff and was admitted under [facility] physician group hospitalist service for cellulitis of his right hand. Currently he states he is having moderate pain mostly in the dorsum of the hand and wrist. He states he feels like the infection is steadily going up his arm and he has pain that radiates all the way up to his shoulder. He currently denies any fever or chills at this time. No nausea or vomiting. Denies shortness of breath or chest pain. Allergies Allergy/AdvReac Type Severity Reaction Status Date / Time No Known Allergies Allergy Unknown Verified 12/21/20 16:17 Home Medications Medication Instructions Recorded Confirmed Type amitriptyline 100 mg tablet 200 mg PO HS 03/19/18 12/21/20 History medical marijuana 1 dose PO UD 06/03/18 12/21/20 History oxycodone-acetaminophen 5 mg-325 1 tab PO Q4H PRN 06/03/18 12/21/20 History mg tablet (Percocet) lisinopril 20 1 tab PO DAILY 12/21/20 12/21/20 History mg-hydrochlorothiazide 25 mg tablet sildenafil (pulm.hypertension) 20 40 - 100 mg PO UD 12/21/20 12/21/20 History mg tablet Patient History Medical History Asthma HTN (hypertension), benign Lumbar radicular pain Sarcoidosis Spinal cord stimulator status had stimulator implanted, was not effective so it was explanted Surgical History History of back surgery L2-[address] Romero Social History Smoking Status: Never smoker Hx Alcohol Use: No Hx Substance Use: No Preferred Language: Burkinan Communication Ability: Effective Visual Impairment: No Limitations Hearing Ability: Normal Brick Pitcher Required: No Beliefs That Will Affect Care: None marital status: Current Living Situation: Spouse current occupational status: unemployed current occupation: Delivers bargain sheet once weekly Feels Safe at Home: Yes Safety Concerns: Feels Safe At This Time Assistive Devices: None Physical Exam Physical Exam: Patient is a 55-year-old white male who appears younger than his stated age. He is alert oriented x3 and in a mild amount of distress due to right hand pain. Pleasant and cooperative. Examination of his right upper extremity he has diffuse swelling of the dorsum of his right hand down to the MP joints of all five fingers. Swelling dissipates into the fingers and there is no erythema in this second third fourth or fifth fingers. He has erythema into his right thumb with some swelling but not as diffuse as the dorsum of the hand. The swelling travels proximally over the wrist and about a quarter the way up the forearm. The remainder of his forearm is soft and nontender. He has tenderness on palpation of the dorsum of the hand and the wrist. He has no pain on palpation of the palmar aspect of the hand and the thenar and hyperthenar eminences are benign at this time on palpation. His erythema does travel proximally up the forearm just shy of the elbow. He has no overt pain in the elbow but states that pain radiates all the way up to his shoulder. He denies any pain on palpation of his axilla and I cannot appreciate an enlarged lymph glands. Patient is able to actively flex and extend his fingers but has moderate decreased range of motion he is unable to fully extend the first second third and fourth fingers but is able to fully extend the fifth finger. He is unable to make a full fist at this time. He has no pain with passive extension of the second through fifth fingers. He has exquisite tenderness on passive extension of the thumb and also flexion of the thumb. Again the swelling over the dorsum of the hand is diffuse. He has some limited range of motion of the right wrist at this time he states that flexion extension of the wrist at this time are fairly uncomfortable. Inversion and eversion of the wrist does not appear to be as painful. The volar aspect of his forearm does not appear to be is involved. He has some noted healing scratches over the midportion of his forearm and has some noted bruising on the upper arm which she states are from cutting wood recently. Sensation is slightly decreased in all the fingers of the right hand but he is still able to feel deep palpation of the fingers. Cap refill is less than 2 seconds. Results & Data ([facility]) Vital Signs (Past 12 Hours) Vital Signs Temp Pulse Resp BP Pulse Ox 12/22/20 07:30 36.6 C 80 18 130/76 95 Diagnostic Findings Patient: RICHIE KIRKLAND DAdmit Date: 12/21/20MR#: [id number]: [id number] [address] [facility] RDAcct ID:[id number]: Date: 1965[facility] Zip: [place], [place] [address]Sou: 55Location: EDSex: MRoom/Bed:Att Phy:Diagnosis: INFECTION IN R ARM, REFER BY DR. ALHAJI Akins Phy: Alhaji Gee Jr, DOService D ate: 12/21/20Fam Phy:Interpreting Phy: Randall ValentinoAdmit Phy: Ordering Phy: Nathaniel Desai MD cc: ~ CT humerus RT w con, CT forearm RT w con, CT hand RT w con HISTORY: 55 years-old Male infection patient presents with soft tissue infection of the right upper extremity. COMPARISON: None TECHNIQUE: Multiple axial CT images of the right humerus, forearm and hand were obtained following the intravenous ministration of 95 mL Optiray 320. A dose lowering technique was used consistent with the principals of ALA. FINDINGS: HUMERUS: Evaluation of the soft tissues demonstrates no significant inflammation or fluid collection. Tendons and ligaments are not well evaluated by CT technique. No adenopathy identified. There is mild glenohumeral with moderate AC joint osteoarthritis. No acute fracture, dislocation, osseous erosion or suspicious bone lesion. FOREARM: There is mild circumferential subcutaneous edema involving the mid to distal forearm. No drainable collection or soft tissue mass identified. Mild osteoarthritis of the elbow with a linear 4 x 10 mm bone fragment abutting the coronoid process is suggestive of osteophytic spurring. No acute fracture, dislocation or osseous erosion. HAND: Mild to moderate dorsal subcutaneous edema of the hand and wrist. The study is limited secondary to beam hardening artifact. Questioned associated dorsal intramuscular edema and possible extensor tenosynovitis. No fluid collection. Tendons and ligaments are not well evaluated by CT technique. 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 No acute fracture, dislocation or osseous erosion. IMPRESSION: 1. No acute fracture, dislocation or osseous erosion. 2. Subcutaneous edema of the dorsal forearm, hand and wrist is suggestive of cellulitis. No abscess identified. 3. Questioned myositis and possible tenosynovitis of the dorsal hand. 4. Multifocal osteoarthritis as above. CT humerus RT w con, CT forearm RT w con, CT hand RT w con HISTORY: 55 years-old Male infection patient presents with soft tissue infection of the right upper extremity. COMPARISON: None TECHNIQUE: Multiple axial CT images of the right humerus, forearm and hand were obtained following the intravenous ministration of 95 mL Optiray 320. A dose lowering technique was used consistent with the principals of ALARA. FINDINGS: HUMERUS: Evaluation of the soft tissues demonstrates no significant inflammation or fluid collection. Tendons and ligaments are not well evaluated by CT technique. No adenopathy identified. There is mild glenohumeral with moderate AC joint osteoarthritis. No acute fracture, dislocation, osseous erosion or suspicious bone lesion. FOREARM: There is mild circumferential subcutaneous edema involving the mid to distal for earm. No drainable collection or soft tissue mass identified. Mild osteoarthritis of the elbow with a linear 4 x 10 mm bone fragment abutting the coronoid process is suggestive of osteophytic spurring. No acute fracture, dislocation or osseous erosion. HAND: Mild to moderate dorsal subcutaneous edema of the hand and wrist. The study is limited secondary to beam hardening artifact. Questioned associated dorsal intramuscular edema and possible extensor tenosynovitis. No fluid collection. Tendons and ligaments are not well evaluated by CT technique. 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 No acute fracture, dislocation or osseous erosion.
[2020-12-22] MEDS: HYDROmorphone INJ 1 MG/ML SYRINGE IV PRN ×5 (14:04→22:38)
--- NOTE | 2020-12-22 15:17 | Electrocardiogram Report ---
Test Reason : Blood Pressure : / mmHG Vent. Rate : 082 BPM Atrial Rate : 082 BPM P-R Int : 150 ms QRS Dur : 094 ms QT Int : 366 ms P-R-T Axes : 060 -16 042 degrees QTc Int : 427 ms Poor data quality, interpretation may be adversely affected Normal sinus rhythm Low voltage QRS Borderline ECG When compared with ECG of 30-OCT-2007 06:59, No significant change was found Confirmed by Luis Jean ([id number]) on 12/22/2020 3:17:12 PM Referred By: Confirmed By:Kd Jean
[2020-12-22] MEDS: oxyCODONE HCL IR 5 MG TAB (IMMEDIATE RELEASE) PO PRN ×2 (15:25→21:41)
[2020-12-22] MEDS: DAPTOmycin 500 MG in SYRINGE 0 ML IV SCH (17:20)
[2020-12-22] MEDS ORDERED: KETOROLAC 30 MG/ML VIAL IV SCH (18:00)
--- NOTE | 2020-12-22 20:40 | Hospitalist Progress Note ---
Date of Service December 22, 2020 Assessment & Plan (1) Cellulitis of multiple sites of right hand and fingers: Plan: Patient continues to have above problem. Will add MRSA coevrage this AM: Daptomycin. Continue with Imipenem. Will recommend holding off NSAIDs due to possibility of increasing duration of antibiotics and possible link with soft tissue infection Imipenem will be continued. cultures ordered. consult ortho: awaiting input. No signs of necrotizing fasciitis on ct scan. will keep right hand above heart level to help decrease swelling. (2) Asthma: Plan: appears controled. not on meds (3) HTN (hypertension), benign: Plan: BP at goal. resume home meds. Admission and Anticipated Discharge Date Admission Date: December 21, 2020 Results & Data Results & Data ([facility]) Vital Signs (Past 12 Hours) Vital Signs Temp Pulse Resp BP Pulse Ox 12/22/20 16:00 36.9 C 92 H 20 148/86 H 95 PG Care Time/CCT Total # of Minutes Spent Total Time Spent with Patient: Total time spent is greater than 50% in coordination of care (as documented) at patient's floor/unit and/or counseling patient: Coding Diagnoses Cellulitis of multiple sites of right hand and fingers L03.011; L03.113 Asthma J45.909 HTN (hypertension), benign I10
[2020-12-22] MEDS: AMITRIPTYLINE HCL 100 MG TAB PO SCH (20:44)
[2020-12-22] MEDS ORDERED: ENOXAPARIN INJ 40 MG/0.4 ML SYR SQ SCH (21:00)
[2020-12-22] MEDS: ERTAPENEM SODIUM 1,000 MG in SODIUM CHLORIDE 0.9% 50 ML IV SCH (21:41)
[2020-12-23] MEDS: HYDROmorphone INJ 1 MG/ML SYRINGE IV PRN ×4 (04:41→21:49)
[2020-12-23] MEDS: LISINOPRIL/HCTZ 20/25MG 1 TAB PO SCH (07:52)
[2020-12-23] MEDS: HEPARIN SOD 5,000 UNIT/0.5 ML VIAL SQ SCH (07:52)
--- NOTE | 2020-12-23 08:23 | Magnetic Resonance Report ---
MR forearm RT wo con HISTORY: Right forearm pain. r/o wrist/foream abscess/tenosynovitis TECHNIQUE: Coronal T1 and coronal proton density sequences of the right forearm were obtained. The pa tient was unable to continue for the remaining sequences. COMPARISON STUDY: Right forearm CT 12/21/2020. FINDINGS: The study is limited from a technical standpoint due to incomplete acquisition of sequences as the patient was in too much pain to continue. Coronal images demonstrate soft tissue swelling wit hin the mid to distal forearm. No definite fluid collection. Normal marrow signal intensity seen with in the visualized osseous structures of the forearm. IMPRESSION: Study is limited from a technical standpoint due to incomplete acquisition of sequences as the patien t was in too much pain to continue. There is redemonstration of the mid to distal soft tissue swellin g within the forearm. ACT 112: Negative or not required by law. Electronically signed by: Mina Mosher M.D. 12/23/2020 8:22 AM
[2020-12-23] MEDS: oxyCODONE HCL IR 5 MG TAB (IMMEDIATE RELEASE) PO PRN ×2 (09:10→16:43)
[2020-12-23 09:23] LABS: Eosinophils # (auto) 0.01 K/uL (0-0.5); Eosinophils % (auto) 0.1 %; Hematocrit (blood only) 34.2 % (42-52); Hemoglobin 11.4 g/dL (14.0-18.0); Immature Granulocytes # (auto) 0.11 K/uL (0.00-0.02); Immature Granulocytes % (auto) 1.1 %; Lymphocytes # (auto) 1.03 K/uL (1.2-3.4); Lymphocytes % (auto) 10.5 %; Mean Corpuscular Hemoglobin 31.7 pg (25-34); Mean Corpuscular Hgb Conc 33.3 g/dL (32-36); Mean Platelet Volume 8.1 fL (7.4-10.4); Monocytes # (auto) 0.78 K/uL (0.11-0.59); Monocytes % (auto) 7.9 %; Neutrophils # (auto) 7.91 K/uL (1.4-6.5); Neutrophils % (auto) 80.4 %; Platelet Count 183 K/uL (130-400); RDW Standard Deviation 48.6 fL (36.4-46.3); White Blood Count 9.84 K/uL (4.8-10.8)
[2020-12-23] MEDS ORDERED: BUPIVACAINE 0.5 % 5 MG/1 ML MPF 30ML VIAL ONE (09:36)
[2020-12-23 09:46] LABS: BUN Creatinine Ratio 15.6 (10-20); Calcium 8.8 mg/dl (8.5-10.1); Creatinine Clr Calc Pharmacy 147.8 ml/min; Est GFR (Non-African American) 102.7 ml/min; Magnesium 1.7 mg/dl (1.8-2.4); Potassium 2.7 mmol/L (3.5-5.1)
--- NOTE | 2020-12-23 10:27 | Progress Notes ---
SUBJECTIVE: Satish was seen at the bedside today and had significant pain in the right hand. He st ates it has been fairly severe and has worsened with time. He notes a history of approximately 2 mon ths ago where he sustained a laceration involving a nail to the tip of the index and thumb. He state s this did get initially infected, but did resolve. He notes increasing pain and swelling. PAST MEDICAL HISTORY: Includes asthma, hypertension, sarcoidosis. MEDICATIONS: Amitriptyline, oxycodone, lisinopril, sildenafil. PAST SURGICAL HISTORY: Includes history of spinal cord stimulator and chronic low back pain. OBJECTIVE: Right hand exam does show severe swelling in the hand, mostly centered over the dorsal as pect of the hand. He has negative [place] signs. He has no pain with passive extension of the digit s. He has no tenderness over his carpal tunnel or his volar flexor tendons. He has severe pain with motion of the wrist. He has severe pain with motion of the thumb over the CMC joint. IMAGING DATA: I reviewed MRI of the forearm, which is low resolution and is nondiagnostic. ASSESSMENT: Right hand infection. PLAN: I discussed findings and treatment with him. I do feel he has failed conservative treatment a nd is exhibiting persistent pain. I am concerned he may have a septic risk, possibly septic CMC join t. He is currently pending additional images for higher resolution MRI. I discussed with MRI that w e should focus this on the wrist to try and obtain anatomic localization of infection. Once this is accomplished, we will plan for irrigation and debridement of right hand LEE ANN. We discussed risks, be nefits, outcomes, and expectations with the patient today. Job ID: [id number]
[2020-12-23] MEDS ORDERED: GADOBUTROL 65ML VIAL IV ONE (10:35)
[2020-12-23] MEDS ORDERED: MIDAZOLAM HCL 1 MG/ML 2ML VIAL ONE (10:51)
[2020-12-23] MEDS ORDERED: fentaNYL citrate 100 MCG/2 ML VIAL ONE ×3 (10:54→12:47)
[2020-12-23] MEDS ORDERED: LIDOCAINE 2% 2 ML VIAL/AMP(20MG/ML) INFIL ONE (10:56)
[2020-12-23] MEDS ORDERED: PROPOFOL IV EMULSION 10 MG/ML 20 ML VIAL IV ONE (10:56)
[2020-12-23] MEDS ORDERED: fentaNYL citrate 100 MCG/2 ML VIAL IV PRN (10:57)
[2020-12-23] MEDS ORDERED: ONDANSETRON INJ 2 MG/ML 2 ML VIAL IV PRN (10:57)
[2020-12-23] MEDS ORDERED: HYDROmorphone INJ 2 MG/ML SYR/VIAL IV PRN (10:57)
[2020-12-23] MEDS ORDERED: ONDANSETRON INJ 2 MG/ML 2 ML VIAL ONE (10:57)
[2020-12-23] MEDS ORDERED: ePHEDrine sulfate 50 MG/ML AMP IV PRN (10:57)
[2020-12-23] MEDS ORDERED: ATROPINE SULFATE 0.1 MG/ML 10ML SYR IV PRN (10:57)
--- NOTE | 2020-12-23 10:57 | Anesthesiology Consultation ---
Date of Service December 23, 2020 Assessment & Plan ASA ASA3 Proposed Anesthesia Anesthesia Type: General Risk / Benefits Reviewed With: PT / POA / Parent / Guardian, Accepts Plan and Informed Consent Obtained History Surgery Operation Date: 12/23/20 10:00 Proposed Procedures p Incision and Drainage Right Hand - Phu Ramírez MD Height/Weight Height: 6 ft 3 in Weight: 111.13 kg Allergies Allergy/AdvReac Type Severity Reaction Status Date / Time No Known Allergies Allergy Unknown Verified 12/21/20 16:17 Medications Home Medications Medication Instructions Recorded Confirmed Last Taken amitriptyline 100 mg tablet 200 mg PO HS 03/19/18 12/21/20 03/28/18 20:00 medical marijuana 1 dose PO UD 06/03/18 12/21/20 Unknown oxycodone-acetaminophen 5 mg-325 1 tab PO Q4H PRN 06/03/18 12/21/20 Unknown mg tablet (Percocet) lisinopril 20 1 tab PO DAILY 12/21/20 12/21/20 Unknown mg-hydrochlorothiazide 25 mg tablet sildenafil (pulm.hypertension) 20 40 - 100 mg PO UD 12/21/20 12/21/20 Unknown mg tablet Active Medications Generic Name Dose Route Start Last Admin Trade Name Freq PRN Reason Stop Dose Admin Acetaminophen 650 mg 12/21/20 19:44 12/22/20 23:47 Acetaminophen 325 Mg Tab PO 01/20/21 19:43 650 mg Q6 PRN Administration pain/fever >101.5 Amitriptyline HCl 200 mg 12/21/20 21:16 12/22/20 20:44 Amitriptyline Hcl 100 Mg Tab PO 01/20/21 21:15 200 mg HS RUMA Administration Calcium Carbonate 1,000 mg 12/22/20 08:15 12/22/20 08:35 Calcium Carbonate 500 Mg Chewable Tab PO 01/21/21 08:14 1,000 mg Q6H PRN Administration Indigestion Lisinopril/HCTZ 1 tab 12/22/20 09:00 12/23/20 07:52 Lisinopril/Hctz 20/25mg 1 Tab PO 01/21/21 08:59 1 tab DAILY RUMA Administration Heparin Sodium (Porcine) 5,000 units 12/21/20 21:30 12/23/20 07:52 Heparin Sod 5,000 Unit/0.5 Ml Vial SQ 01/20/21 21:29 5,000 units Q12 RUMA Administration Hydromorphone HCl 1 mg 12/22/20 12:16 12/23/20 07:51 Hydromorphone Inj 1 Mg/Ml Syringe IV 01/05/21 12:15 1 mg Q2H PRN Administration Pain Ertapenem 1,000 mg/ Sodium 60 mls @ 100 mls/hr 12/21/20 21:30 12/22/20 22:21 Chloride IV 12/28/20 21:29 Infused Q24H RUMA Infusion Daptomycin 500 mg/ Syringe 10 mls @ 5 mls/min 12/22/20 17:00 12/22/20 17:20 IV 12/29/20 16:59 5 mls/min Q24H RUMA Administration Protocol Oxycodone HCl 5 - 10 mg 12/22/20 15:16 12/23/20 09:10 Oxycodone Hcl Ir 5 Mg Tab (Immediate Release) PO 01/05/21 15:15 10 mg Q4H PRN Administration Pain NPO Date Last Intake of Fluids: 12/23/20 Time Last Intake of Fluids: 00:00 Date Last Intake of Solids: 12/23/20 Time Last Intake of Solids: 00:00 Past Medical History Medical History Asthma HTN (hypertension), benign Lumbar radicular pain Sarcoidosis Spinal cord stimulator status had stimulator implanted, was not effective so it was explanted Exercise / Class Metabolic Activity II 4-5 Yardwork/Stairs/Walk up hill Past Surgical History Surgical History History of back surgery L2-[address] Romero Past Anesthesia History No Hx of Anesthesia Complications and No Family Hx of Anesthesia Complications History of PONV No Hx of PONV and No Hx of Motion Sickness Social History Smoking Status: Never smoker Hx Alcohol Use: No Hx Substance Use: No Review of Systems denies fever/cough/ colds/ chest pain/ SOB/ OMARI denies OMARI Physical Exam Vital Signs Last Vital Signs Temp 36.7 C 12/23/20 07:55 Pulse 93 H 12/23/20 07:55 Resp 20 12/23/20 07:55 BP 140/91 12/23/20 07:55 Pulse Ox 98 12/23/20 07:55 ENMT Mouth: no TMJ abnormality and no dentition abnormality Thyromental Distance: > or= 3.5 Finger Breadths Mallampati Class: II Neck neck extension not limited Respiratory normal respiratory effort; no respiratory distress Auscultation: lungs clear to auscultation bilaterally Cardiovascular Rate/Rhythm: regular rate and regular rhythm Neurologic moves all extremities Psychiatric Orientation: alert and oriented x 3 Testing Laboratory Results 12/23/20 09:02 12/23/20 09:02 PT 9.8 Seconds (9.0-12.0) 12/21/20 15:30 INR 1.0 (0.9-1.1) 12/21/20 15:30 APTT 22.5 Seconds (21.0-31.0) 12/21/20 15:30 Urine Color Yellow 12/21/20 16:17 Urine Appearance Clear (Clear) 12/21/20 16:17 Urine pH 7.5 (4.5-7.5) 12/21/20 16:17 Ur Specific [place] 1.018 (1.000-1.030) 12/21/20 16:17 Urine Protein Negative (Negative) 12/21/20 16:17 Urine Glucose (UA) Negative (Negative) 12/21/20 16:17 Urine Ketones Negative (Negative) 12/21/20 16:17 Urine Nitrite Negative (Negative) 12/21/20 16:17 Ur Leukocyte Esterase Negative (Negative) 12/21/20 16:17 12/21/20 16:45 Aerobic Blood Culture - Preliminary Blood No growth in Aerobic bottle after 24 hours. Anaerobic Blood Culture - Preliminary No growth in Anaerobic bottle after 24 hours. 12/21/20 15:30 Aerobic Blood Culture - Preliminary Blood No growth in Aerobic bottle after 24 hours. Anaerobic Blood Culture - Preliminary No growth in Anaerobic bottle after 24 hours.
[2020-12-23] MEDS ORDERED: ACETAMINOPHEN 1000 MG/100 ML IV IV ONE (10:59)
--- NOTE | 2020-12-23 11:11 | Magnetic Resonance Report ---
MR wrist RT wo/w con CLINICAL HISTORY: 55 years-old Male with r/o abscess/tenosynovitis. Soft tissue swelling of the righ t wrist and forearm COMPARISON: Right forearm MRI 12/22/2020, right upper extremity CT studies 12/21/2020 TECHNIQUE: Multiplanar, multi sequence MRI of the right wrist was performed without intravenous contr ast. FINDINGS: EXTRINSIC LIGAMENTS: The volar extrinsic ligaments including the pqzmy-zvwpkd-pspahdrq and radio-bronson o-triquetral ligaments are grossly intact. INTRINSIC LIGAMENTS: The scapholunate and lunotriquetral ligaments are intact and unremarkable in ap pearance. No evidence of scapholunate or lunotriquetral interval widening. TFCC: Small perforation of the thin zone articular disc is suggested. The meniscal homologue, the ex tensor carpi ulnaris tendon, the volar and dorsal distal radioulnar ligaments and the ulnolunate and ulnotriquetral ligaments appear intact. BONE MARROW: No acute fracture, osseous erosion or marrow replacing process. JOINT SPACES: Multifocal osteoarthritis includes mild radiocarpal with severe first carpometacarpal osteoarthritis. Small first carpal metacarpal joint effusion is likely on a degenerative basis. No in tra-articular loose body identified. CARPAL TUNNEL: The flexor tendons and median nerve are unremarkable in appearance. The flexor reti naculum is unremarkable. The ulnar nerve appears unremarkable. Mild to moderate edema within the carp al tunnel is likely reactive secondary to the soft tissue findings as below. EXTENSOR TENDONS: Mild tendinosis of the first and second extensor compartment. Moderate first exten sor compartment tenosynovitis. Extensive complex fluid distends the second, third and fourth extensor compartments. There is discontinuity of the fourth extensor tendons at the level of the distal forea rm and proximal carpal row extending for a length of approximately 4.3 cm nicely seen on image 16 ser ies 4 compatible with high-grade partial versus full-thickness tearing. SOFT TISSUES: There is extensive diffuse subcutaneous and deep tissue edema with intramuscular edema . Peripheral enhancement of the first through fourth extensor compartments is noted with a peripheral ly enhancing fluid collection contiguous with the aforementioned extensor compartments the dorsal mariano d measuring up to approximately 6.9 x 3.6 cm. There is only partially imaged best seen on image 26 of series 12 measuring 1.4 cm in AP dimension. IMPRESSION: 1. Extensive cellulitis of the distal forearm, hand and wrist with probable associated myositis. 2. Infectious tenosynovitis of the first through fourth extensor compartments with a partially imaged peripherally enhancing multiloculated fluid collection of the dorsal hand contiguous with the extens or compartments suggestive of a probable abscess measuring up to approximately 6.9 cm in length. 3. High-grade partial versus full-thickness tear of the fourth extensor compartment tendons extends f or a length of 4.3 cm from the level of the distal forearm to level of the carpus. 4. 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 5. No evidence of osteomyelitis or definite infectious arthropathy. ACT 112: Negative or not required by law. The above report was generated using voice recognition software. It may contain grammatical, syntax o r spelling errors. Electronically signed by: Randall Valentino M.D. 12/23/2020 11:10 AM
[2020-12-23] MEDS ORDERED: KETOROLAC 30 MG/ML VIAL ONE (11:33)
[2020-12-23] MEDS ORDERED: PHENYLEPHRINE 100MCG/ML 5ML SYR ONE (11:38)
[2020-12-23] MEDS ORDERED: ceFAZolin 1000MG 1,000 MG/7.5 ML SYR IV ONE (12:26)
[2020-12-23] MEDS ORDERED: FLOSEAL HEMOSTATIC MATRIX 10ML TOP ONE (12:49)
--- NOTE | 2020-12-23 12:58 | Post Operative Brief Note ---
Immediate Post Op Note v1 Date of Surgery December 23, 2020 Pre & Post Diagnosis Operation Date: 12/23/20 10:00 Pre-Op Diagnosis: Right hand abscess, extensor tenosynovitis Post-Op Diagnosis: Right hand abscess, extensor tenosynovitis I identified the patient and participated in the time-out.: Yes Procedure Operation Date: 12/23/20 10:00 Actual Procedures p Right hand irrigation and debridement of abscess, extensor tenosynovectomy(Right) - Phu Ramírez MD Surgeon Phu Ramírez MD Research Program Assistant KIM Morrow Estimated Blood Loss 50 Findings Consistent with Post-Op Diagnosis
[2020-12-23] MEDS ORDERED: NALOXONE HCL 0.4 MG/1 ML VIAL/CARP IV PRN (14:06)
[2020-12-23] MEDS ORDERED: bisacodyL 10 MG SUPP PR PRN (14:06)
[2020-12-23] MEDS ORDERED: MAGNESIUM HYDROXIDE SUSP 30 ML UDC PO PRN (14:06)
--- NOTE | 2020-12-23 14:15 | Anesthesiology Progress Note ---
Date of Service December 23, 2020 Anesthesia Post Procedure Vital Signs Vital Signs: Temp Pulse Pulse Resp BP Pulse Ox 12/23/20 13:57 93 H 14 124/78 100 12/23/20 13:47 93 H 16 145/80 H 98 12/23/20 13:37 37.3 C 87 16 130/82 100 12/23/20 13:27 94 H 16 131/86 98 12/23/20 13:17 91 H 16 138/86 100 12/23/20 13:07 36.5 C 93 H 19 133/85 99 12/23/20 07:55 36.7 C 93 H 20 140/91 98 12/22/20 23:43 36.9 C 99 H 20 140/84 94 12/22/20 16:00 36.9 C 92 H 20 148/86 H 95 Pain Intensity Right Hand: Pain Intensity: 4 Transfer of Care Handoff Completed per policy Notes Mental Status: alert / awake / arousable and participated in evaluation Patient Amnestic to Procedure: Yes Nausea / Vomiting: adequately controlled Pain: adequately controlled Airway Patency, RR, SpO2: stable & adequate BP & HR: stable & adequate Hydration State: stable & adequate Anesthetic Complications: no major complications apparent and Pt Satisfied with anesthetic care
[2020-12-23] MEDS: SODIUM CHLORIDE 0.9% 1000ML 1,000 ML IV SCH (14:24)
[2020-12-23] MEDS: DAPTOmycin 500 MG in SYRINGE 0 ML IV SCH (16:21)
[2020-12-23] MEDS: ERTAPENEM SODIUM 1,000 MG in SODIUM CHLORIDE 0.9% 50 ML IV SCH (20:51)
[2020-12-23] MEDS: DOCUSATE SODIUM 100 MG CAP PO SCH (20:51)
[2020-12-23] MEDS: AMITRIPTYLINE HCL 100 MG TAB PO SCH (20:51)
--- NOTE | 2020-12-23 21:04 | Hospitalist Progress Note ---
Date of Service December 23, 2020 Assessment & Plan (1) Cellulitis of multiple sites of right hand and fingers: Plan: Patient continues to have above problem. Right hand irrigation and debridement of abscess, extensor tenosynovectomy(Right) continue dapto and impenem.. Will recommend holding off NSAIDs due to possibility of increasing duration of antibiotics and possible link with soft tissue infection cultures ordered. (2) Asthma: Plan: appears controled. not on meds (3) HTN (hypertension), benign: Plan: BP at goal. resume home meds. Admission and Anticipated Discharge Date Admission Date: December 21, 2020 Subjective Patient reports feeling better after surgery. Pain is still present but has decreased in intensity. Review of Systems Review of Systems: All systems reviewed & are unremarkable except as noted in HPI & below Physical Exam Constitutional: WD/WN, vitals as above Eyes: PERRL, conjunctivae normal, anicteric sclerae ENMT: external ear and nose normal, oropharynx normal Neck: trachea midline, no thyromegaly Respiratory: normal respiratory effort, lungs clear to auscultation Cardiovascular: RRR, no murmur, no edema Gastrointestinal (Abdomen): normal bowel sounds, soft, nontender, no hepatosplenomegaly Skin: no rashes, warm and dry Neurologic: PERRL, EOMI, accommodation nl, no face palsy, no dysarthria Psychiatric: A+Ox3, euthymic affect Genitourinary: no testicular masses, no penis abnormality Lymphatic: no cervical or axillary lymphadenopathy Results & Data Results & Data ([facility]) Vital Signs (Past 12 Hours) Vital Signs Temp Pulse Pulse Resp BP Pulse Ox 12/23/20 20:43 38.0 C H 100 H 17 136/79 93 12/23/20 17:51 84 18 119/74 96 12/23/20 16:41 88 18 138/64 98 12/23/20 15:45 36.7 C 92 H 18 134/79 98 12/23/20 14:45 36.8 C 103 H 20 182/72 H 96 12/23/20 14:20 36.8 C 92 H 18 129/80 96 12/23/20 13:57 93 H 14 124/78 100 12/23/20 13:47 93 H 16 145/80 H 98 12/23/20 13:37 37.3 C 87 16 130/82 100 12/23/20 13:27 94 H 16 131/86 98 12/23/20 13:17 91 H 16 138/86 100 12/23/20 13:07 36.5 C 93 H 19 133/85 99 PG Care Time/CCT Total # of Minutes Spent Total Time Spent with Patient: Total time spent is greater than 50% in coordination of care (as documented) at patient's floor/unit and/or counseling patient: Coding Level of Care Code 03083 Subseq Hosp Care Lvl 2 Diagnoses Cellulitis of multiple sites of right hand and fingers L03.011; L03.113 Asthma J45.909 HTN (hypertension), benign I10 Time Spent (min) 25
[2020-12-23] MEDS: ONDANSETRON INJ 2 MG/ML 2 ML VIAL IV PRN (21:49)
[2020-12-24] MEDS: SODIUM CHLORIDE 0.9% 1000ML 1,000 ML IV SCH ×2 (01:35→20:37)
[2020-12-24] MEDS: HYDROmorphone INJ 1 MG/ML SYRINGE IV PRN ×3 (05:00→12:37)
[2020-12-24 07:54] LABS: Basophils # (auto) 0.01 K/uL (0-0.2); Basophils % (auto) 0.1 %; Hematocrit (blood only) 30.4 % (42-52); Hemoglobin 10.2 g/dL (14.0-18.0); Immature Granulocytes # (auto) 0.16 K/uL (0.00-0.02); Immature Granulocytes % (auto) 1.3 %; Lymphocytes # (auto) 0.73 K/uL (1.2-3.4); Lymphocytes % (auto) 5.9 %; Mean Corpuscular Hemoglobin 31.6 pg (25-34); Mean Corpuscular Hgb Conc 33.6 g/dL (32-36); Mean Corpuscular Volume 94.1 fL (80-100); Mean Platelet Volume 8.2 fL (7.4-10.4); Monocytes # (auto) 1.03 K/uL (0.11-0.59); Monocytes % (auto) 8.4 %; Neutrophils # (auto) 10.35 K/uL (1.4-6.5); Neutrophils % (auto) 84.3 %; Platelet Count 184 K/uL (130-400); RDW Coefficient of Variation 13.9 % (11.5-14.5); RDW Standard Deviation 48.3 fL (36.4-46.3); Red Blood Count 3.23 M/uL (4.7-6.1); White Blood Count 12.28 K/uL (4.8-10.8)
[2020-12-24 08:23] LABS: BUN Creatinine Ratio 10.7 (10-20); Creatinine Clr Calc Pharmacy 126.2 ml/min; Est GFR (African American) 111.6 ml/min; Est GFR (Non-African American) 96.3 ml/min; Magnesium 1.9 mg/dl (1.8-2.4); Potassium 2.9 mmol/L (3.5-5.1)
[2020-12-24 08:30] LABS: C Reactive Protein 20.7 mg/dl (0-0.29)
[2020-12-24] MEDS: LISINOPRIL/HCTZ 20/25MG 1 TAB PO SCH (08:30)
[2020-12-24] MEDS: DOCUSATE SODIUM 100 MG CAP PO SCH ×2 (08:30→21:19)
[2020-12-24] MEDS: MULTIVITAMIN TAB PO SCH (08:31)
--- NOTE | 2020-12-24 09:19 | Orthopedic Progress Note ---
Date of Service December 24, 2020 Assessment & Plan (1) Extensor tenosynovitis of right wrist: Plan: Postop day 1 status post right extensor tenosynovectomy and I&D of abscess. Patient had a very extensive infection with rupture of his extensor tendons. We performed extensive extensor tenosynovectomy. Our plan is to monitor him over the next 2 to 3 days to determine whether or not he requires repeat irrigation and debridement. We should continue antibiotics and adjust as necessary. I took multiple cultures yesterday. We will continue VAC for now. Admission and Anticipated Discharge Date Admission Date: December 21, 2020 Subjective He notes significant improvements in pain after surgery Physical Exam Physical Exam: Physical exam shows slight decrease in erythema and redness, it is significantly decreased on the ulnar aspect of the wrist. He has persistent redness on the radial side of the wrist. VAC is intact and is working. Results & Data ([facility]) Vital Signs (Past 12 Hours) Vital Signs Temp Pulse Resp BP Pulse Ox 12/24/20 07:19 37 C 99 H 18 150/81 H 94 12/24/20 05:57 36.8 C 12/24/20 03:27 37.8 C H 109 H 17 135/64 92 12/23/20 23:18 37.4 C 101 H 17 137/82 93
[2020-12-24] MEDS: POTASSIUM CHLORIDE / WTR 10 MEQ/100 ML PLCT IV SCH ×4 (12:49→16:46)
[2020-12-24] MEDS: HYDROmorphone INJ 2 MG/ML SYR/VIAL IV PRN ×4 (14:33→18:36)
[2020-12-24] MEDS: POLYETHYLENE (MIRALAX) 17 GM PACK PO SCH (15:45)
[2020-12-24] MEDS: DOCUSATE SODIUM/SENNA 50/8.6MG TAB PO SCH (15:46)
[2020-12-24] MEDS: oxyCODONE HCL IR 5 MG TAB (IMMEDIATE RELEASE) PO PRN (16:04)
[2020-12-24] MEDS: DAPTOmycin 500 MG in SYRINGE 0 ML IV SCH (16:39)
[2020-12-24] MEDS ORDERED: NALOXONE HCL 0.4 MG/1 ML VIAL/CARP IV PRN (19:31)
[2020-12-24] MEDS ORDERED: HYDROmorphone PCA 30 MG/30 ML IV PRN (19:31)
--- NOTE | 2020-12-24 19:40 | Communication Note ---
Date of Service: December 24, 2020 Subjective: Nursing notified me that the patient was crying out in pain. He explained that the pain will go away for about 20 minutes after receiving Dilaudid which is currently schedule 1.5 mg Q1H. He noted that the pain was around the wound vac and that he noted increased swelling. Objective: HR 100, afebrile Right hand with erythema and significant swelling, no drainage, wound vac in place Assessment and plan: - scheduled Tylenol - ordered a CLAY PIGEON SETTER at a rate of 0.4 mg with lockout every 15 minutes - continue to monitor patient's pain Resident Activity Tracking Resident Involvement: Resident Care Provided Care Provided: [facility] Medicine CBC Results Results Complete Blood Count Results: RBC 3.23 M/uL (4.7-6.1) L 12/24/20 WBC 12.28 K/uL (4.8-10.8) H 12/24/20 Hgb 10.2 g/dL (14.0-18.0) L 12/24/20 Hct 30.4 % (42-52) L 12/24/20 Plt Count 184 K/uL (130-400) 12/24/20 Chemistry (BMP) Results BMP Results: Sodium 137 mmol/L (136-145) 12/24/20 Potassium 2.9 mmol/L (3.5-5.1) L 12/24/20 Chloride 100 mmol/L (98-107) 12/24/20 BUN 10 mg/dl (7-18) 12/24/20 Creatinine 0.89 mg/dl (0.6-1.4) 12/24/20 Glucose 121 mg/dl (70-99) H 12/24/20
--- NOTE | 2020-12-24 19:43 | Hospitalist Progress Note ---
Date of Service December 24, 2020 Assessment & Plan (1) Cellulitis of multiple sites of right hand and fingers: Plan: S/P Right hand irrigation and debridement of abscess, extensor tenosynovectomy(Right) multiple cultures obtained continue dapto and impenem.. Will recommend holding off NSAIDs due to possibility of increasing duration of antibiotics and possible link with soft tissue infection cultures ordered. Patient has required multiple doses of dialudid. will place on ms contin 30 mg PO BID. Bowel regimen placed. (2) Asthma: Plan: appears controled. not on meds (3) HTN (hypertension), benign: Plan: BP at goal. resume home meds. DVT proh: heparin Admission and Anticipated Discharge Date Admission Date: December 21, 2020 Subjective Patient reports swelling has improved and pain has decreased. Review of Systems Review of Systems: All systems reviewed & are unremarkable except as noted in HPI & below Physical Exam Constitutional: WD/WN, vitals as above Eyes: PERRL, conjunctivae normal, anicteric sclerae ENMT: external ear and nose normal, oropharynx normal Neck: trachea midline, no thyromegaly Respiratory: normal respiratory effort, lungs clear to auscultation Cardiovascular: RRR, no murmur, no edema Gastrointestinal (Abdomen): normal bowel sounds, soft, nontender, no hepatosplenomegaly Skin: no rashes, warm and dry (Left handed patient. Right hand is swollen with wound vac swollen decreased) Neurologic: PERRL, EOMI, accommodation nl, no face palsy, no dysarthria Psychiatric: A+Ox3, euthymic affect Genitourinary: no testicular masses, no penis abnormality Lymphatic: no cervical or axillary lymphadenopathy Results & Data Results & Data ([facility]) Vital Signs (Past 12 Hours) Vital Signs Temp Pulse Resp BP Pulse Ox 12/24/20 14:54 36.9 C 100 H 18 137/79 93 PG Care Time/CCT Total # of Minutes Spent Total Time Spent with Patient: Total time spent is greater than 50% in coordinat ion of care (as documented) at patient's floor/unit and/or counseling patient: Coding Level of Care Code 88607 Subseq Hosp Care Lvl 3 Diagnoses Cellulitis of multiple sites of right hand and fingers L03.011; L03.113 Asthma J45.909 HTN (hypertension), benign I10
[2020-12-24] MEDS: AMITRIPTYLINE HCL 100 MG TAB PO SCH (21:19)
[2020-12-24] MEDS: ERTAPENEM SODIUM 1,000 MG in SODIUM CHLORIDE 0.9% 50 ML IV SCH (21:29)
[2020-12-24] MEDS: ACETAMINOPHEN 325 MG TAB PO SCH (23:22)
[2020-12-25] MEDS: ACETAMINOPHEN 325 MG TAB PO SCH ×3 (06:10→17:25)
[2020-12-25] MEDS: HEPARIN SOD 5,000 UNIT/0.5 ML VIAL SQ SCH (06:11)
[2020-12-25] MEDS: oxyCODONE HCL IR 5 MG TAB (IMMEDIATE RELEASE) PO PRN ×3 (07:59→17:24)
--- NOTE | 2020-12-25 08:46 | Operative Report (OR) ---
DATE OF SERVICE: PREOPERATIVE DIAGNOSES: 1. Right extensor tenosynovitis, extensive. 2. Right hand abscess. POSTOPERATIVE DIAGNOSES: 1. Right extensor tenosynovitis Abductor pollicis longus tendon. 2. Right extensor tenosynovitis Extensor pollicis brevis tendon. 3. Right extensor tenosynovitis Extensor carpi radialis brevis tendon. 4. Right extensor tenosynovitis Extensor carpi radialis longus tendon. 5. Right extensor tenosynovitis Extensor pollicis longus tendon. 6. Right extensor tenosynovitis Extensor indicis proprius tendon. 7. Right extensor tenosynovitis Extensor digitorum communis tendons to digits 2 through 5. 8. Right hand dorsal abscess. PROCEDURE: 1. Right extensor tenosynovectomy Abductor pollicis longus tendon. 2. Right extensor tenosynovectomy Extensor pollicis brevis tendon. 3. Right extensor tenosynovectomy Extensor carpi radialis brevis tendon. 4. Right extensor tenosynovectomy Extensor carpi radialis longus tendon. 5. Right extensor tenosynovectomy Extensor pollicis longus tendon. 6. Right extensor tenosynovectomy Extensor indicis proprius tendon. 7. Right extensor tenosynovectomy Extensor digitorum communis tendons to digits 2 through 5. 8. Right hand I and D of dorsal abscess. 3. Right wrist aspiration of radiocarpal joint. 4. Right hand application of wound VAC. SURGEON: Luis Ramírez MD. BUS MONITOR: Cristobal Morrow PA-C who was necessary for prepping, draping, retraction, exposure, and closure. FINDINGS: Very severe extensive tenosynovitis in the first through fourth extensor compartments. Complete rupture of the EDC tendons was seen. Gross purulence noted throughout the tendons. Dorsal abscess was noted distal to the extensor retinaculum. Extensor retinaculum showed loss of substance and rupture. INDICATIONS: This gentleman has progressive pain and swelling in the dorsal aspect of the hand. He presents for I and D with other work as indicated. I reviewed his MRI of the wrist, which was performed immediately prior to surgery. It shows severe extensor tenosynovitis in the first through fourth extensor compartments and also shows rupture of the extensor tendons. I discussed this with him in the preoperative holding area and we discussed that possibly tendons may be ruptured and we discussed I and D of it and extensor tenosynovectomy. He is agreeable and wishes to proceed. The risks and benefits have been discussed including, but not limited to, risk of infection, nerve injury, stiffness, loss of motion, failure to improve, etc. Reasonable outcomes and options of treatment were discussed. An explanation of appropriate alternatives to the procedure that may be advantageous were discussed and their risks and benefits, as well as the risks and benefits of not proceeding with treatment. I offered to answer any additional inquiries concerning the treatment involved. All the patients questions were answered. The patient is agreeable, understanding of the treatment plan and alternatives, and wishes to proceed with the treatment plan. DESCRIPTION OF PROCEDURE: Hand was elevated and Esmarch was not used given the history of infection. I made a longitudinal incision over the dorsal aspect of the hand extending from the distal aspect of the metacarpal to the distal radius. This was directly over the area of maximal pain and swelling. Dissection was carried down through the skin and subcutaneous tissues. Dorsal veins were cauterized. There was a very severe infection identified in the fourth extensor compartment and the extensor retinaculum was nonviable and there was a very severe infection in the EDC tendons. I performed extensive tenosynovectomy of the EDC tendons and there was severe extensive synovitis throughout the tendons at the whole length of the tendon extending down to the level of Clarke's tubercle. There was significant inflammatory fluid in and around the fourth extensor compartment, which was debrided. The EIP tendon was identified and there was severe extensive tenosynovitis seen in that area as well. This was debrided with rongeurs and scissors completing extensive tenosynovectomy to the EIP tendon. The EPL tendon was identified and this was a bifid tendon with two tendon slips. The EPL tendon was intact. I transposed the EPL tendon and performed extensor tenosynovectomy as there was severe extensor tenosynovitis in that tendon. ECRL and ECRB tendons were identified and both contained moderate tenosynovitis. I performed tenosynovectomy in the local area of those tendons. I opened the first dorsal extensor compartment and there was moderate purulence in that region. This was drained and extensive tenosynovectomy of the APL and EPB tendons were performed. I took multiple cultures superficial and deep and of the abscess. I inspected the radiocarpal joint. I did not identify significant effusion, but I elected to aspirate the joint to make sure there is no additional infection in the joint. With an 18-gauge needle, I aspirated the joint and obtained only a scant amount of synovial fluid. There is no evidence of infection in the radiocarpal joint. I identified an abscess at the dorsal aspect of the hand and the distal aspect of the extensor retinaculum. I performed I and D of abscess and this was drained. I irrigated the area copiously with 1 liter of normal saline and performed extensive and thorough debridement of all of the above-mentioned tendons. Once 3 liters of irrigation fluid was run through, I let the tourniquet down. Hemostasis was obtained with bipolar electrocautery. I additionally placed FloSeal given the friable synovium. There is no viable extensor retinaculum to close. The ED tendons were identified as completely ruptured with approximately a 3 cm gap. I left the tendons in place in the fourth extensor compartment. I did not feel it was safe at this time to perform any additional tendon grafting or further procedures given the active infection. The skin was closed with gregorio. I elected to place a Prevena VAC over the incision to help decrease the swelling and help with resolution of infection. This was placed and a soft dressing was placed over. Postoperative plan will be to monitor wound and the status of the hand. We will continue antibiotics and adjust antibiotics pending culture results. Job ID: [id number] [facility]
--- NOTE | 2020-12-25 08:48 | Hospitalist Progress Note ---
Date of Service December 25, 2020 Assessment & Plan (1) MSSA (methicillin susceptible Staphylococcus aureus) infection: Plan: Switch to IV cefazolin per ID recommendations for total of [address] PICC line after repeat blood cultures following last surgery. Source - cellulitis, tenosynovitis and septic arthritis 1st CMC Initial blood cultures fortunately negative Continue pain control with MS Contin and oxycodone as needed, hopefully can de- escalate as surgery clears infection Wound VAC in place Appreciate orthopedic management of this (2) Cellulitis of multiple sites of right hand and fingers: Plan: As above. More extensive over medial dorsal wrist therefore planning on taking back to surgery today. (3) Extensor tenosynovitis of right wrist: Plan: Orthopedic management as above (4) Septic arthritis: Plan: 6 weeks IV Abx as above (5) Asthma: Plan: No acute exacerbation not on meds (6) HTN (hypertension), benign: Plan: Monitor BP off HCTZ. Continue lisinopril. Hydralazine PRN. (7) Hypokalemia: Plan: Stop HCTZ as most likely culprit of this. NSS + 40 meq @ 100 ml/hr, addition 20 meq K Cl PO now Plan: VTE Prophylaxis Diet - NPO pending surgical decision Disposition - continue on med/surg Admission and Anticipated Discharge Date Admission Date: December 21, 2020 Subjective No fever or chills. Patient reports worsening swelling, pain and erythema overnight. Surgery mostly resolved pain over 1st CMC joint with washout however pain is now mostly over dorsal wrist and 4/5th extensor tendons to mid forearm. Reports improved extension of his fingers since surgery but little to no PIP/DIP extension in 2-4th digits. Discussed case with orthopedics at bedside. Discussed case with infectious disease. Review of Systems Review of Systems: All systems reviewed & are unremarkable except as noted in HPI & below Physical Exam Constitutional: WD/WN, vitals as above Respiratory: normal respiratory effort, lungs clear to auscultation Cardiovascular: RRR, no murmur, no edema Gastrointestinal (Abdomen): normal bowel sounds, soft, nontender, no hepatosplenomegaly Skin: Sensation intact distally. Reduced extension of all MCP joints, no e xtension of 2-4th PIPJ/DIPJ. VAC dressing in place over dorsal wrist. Erythema and swelling over dorsal aspect of right hand to mid forearm. Psychiatric: A+Ox3, euthymic affect Results & Data Results & Data ([facility]) Vital Signs (Past 12 Hours) Vital Signs Temp Pulse Pulse Resp BP Pulse Ox Pulse Ox 12/25/20 07:50 36.9 C 107 H 16 154/90 H 98 12/25/20 06:13 10 L 12/25/20 05:52 96 12/25/20 03:46 36.3 C L 105 H 13 118/72 95 12/25/20 01:03 36.5 C 105 H 18 133/88 95 12/25/20 00:10 36.7 C 96 H 16 122/86 90 12/24/20 22:55 36.6 C 100 H 17 146/91 H 95 12/24/20 22:00 36.8 C 93 H 16 158/71 H 92 PG Care Time/CCT Total # of Minutes Spent Total Time Spent with Patient: Total time spent is greater than 50% in coordination of care (as documented) at patient's floor/unit and/or counseling patient: Coding Level of Care Code 11093 Subseq Hosp Care Lvl 3 Diagnoses Cellulitis of multiple sites of right hand and fingers L03.011; L03.113 Asthma J45.909 HTN (hypertension), benign I10 Extensor tenosynovitis of right wrist M65.831 MSSA (methicillin susceptible Staphylococcus aureus) infection A49.01 Hypokalemia E87.6 Septic arthritis M00.9
[2020-12-25] MEDS: DOCUSATE SODIUM/SENNA 50/8.6MG TAB PO SCH (08:59)
[2020-12-25] MEDS: MoRPHine SULFATE CR 15 MG TABCR PO SCH ×2 (08:59→21:13)
[2020-12-25] MEDS: MULTIVITAMIN TAB PO SCH (09:00)
[2020-12-25] MEDS: DOCUSATE SODIUM 100 MG CAP PO SCH ×2 (09:00→21:13)
[2020-12-25] MEDS: POLYETHYLENE (MIRALAX) 17 GM PACK PO SCH (09:00)
[2020-12-25 09:24] LABS: Basophils # (auto) 0.01 K/uL (0-0.2); Basophils % (auto) 0.1 %; Eosinophils # (auto) 0.08 K/uL (0-0.5); Hematocrit (blood only) 31.4 % (42-52); Hemoglobin 10.4 g/dL (14.0-18.0); Immature Granulocytes # (auto) 0.12 K/uL (0.00-0.02); Immature Granulocytes % (auto) 1.4 %; Lymphocytes % (auto) 7.2 %; Mean Corpuscular Hgb Conc 33.1 g/dL (32-36); Mean Corpuscular Volume 96.6 fL (80-100); Mean Platelet Volume 7.8 fL (7.4-10.4); Monocytes # (auto) 0.94 K/uL (0.11-0.59); Monocytes % (auto) 11.3 %; Neutrophils # (auto) 6.59 K/uL (1.4-6.5); Platelet Count 180 K/uL (130-400); RDW Coefficient of Variation 13.9 % (11.5-14.5); RDW Standard Deviation 49.1 fL (36.4-46.3); Red Blood Count 3.25 M/uL (4.7-6.1); White Blood Count 8.34 K/uL (4.8-10.8)
--- NOTE | 2020-12-25 09:34 | Orthopedic Progress Note ---
Date of Service December 25, 2020 Assessment & Plan (1) Extensor tenosynovitis of right wrist: Plan: Postop day 1 status post right extensor tenosynovectomy and I&D of abscess. Patient had a very extensive infection with rupture of his extensor tendons. We performed extensive extensor tenosynovectomy. Case discussed with Dr. Ramírez. Repeat MRI of the wrist today. Patient may need a second irrigation debridement. We will keep him n.p.o. today at this poi nt. Subcu heparin on hold. Culture showing MSSA. Patient being switched to Ancef. Admission and Anticipated Discharge Date Admission Date: December 21, 2020 Subjective Postop day 2 Patient currently sitting up in bed awake and alert. Right upper extremity on multiple pillows. Wound VAC present. Nursing had to reinforce last night secondary to leaks. Currently functioning. Patient states that he has worsening pain and erythema from the hand going up the forearm. I was notified yesterday of some slight changes in his erythema by the nursing staff in the afternoon. The plans were to watch it at that time and heidy the borders of the erythema. This morning he feels that it has worsened overnight. He has noticed increased swelling of the area over the ulnar aspect mid forearm. Physical Exam Physical Exam: Prevena wound VAC is present. It had to be reinforced secondary to leaks. It is continuing to function. Scant drainage noted in the tubing. He now has increased erythema over the ulnar aspect of the forearm that is a deep red color. This has increased and traveled up to the mid forearm. He does have some pain on palpation. He also points to where his wound VAC dressing ends proximally and states that is where his pain radiates to. He has a little bit less erythema over the thumb and has less swelling. He states that it feels much better. There is some slight erythema noted now traveling down the fingers just to where the VAC dressing ends. He continues to have good sensation and good capillary refill. No complaints of pain on the palmar aspect of the hand. No complaints of pain in the elbow. Results & Data ([facility]) Vital Signs (Past 12 Hours) Vital Signs Temp Pulse Pulse Resp BP Pulse Ox Pulse Ox 12/25/20 07:50 36.9 C 107 H 16 154/90 H 98 12/25/20 06:13 10 L 12/25/20 05:52 96 12/25/20 03:46 36.3 C L 105 H 13 118/72 95 12/25/20 01:03 36.5 C 105 H 18 133/88 95 12/25/20 00:10 36.7 C 96 H 16 122/86 90 12/24/20 22:55 36.6 C 100 H 17 146/91 H 95 12/24/20 22:00 36.8 C 93 H 16 158/71 H 92
[2020-12-25] MEDS: lisinopril 20 MG TAB PO SCH (09:43)
[2020-12-25 09:53] LABS: BUN Creatinine Ratio 9.5 (10-20); Calcium 8.6 mg/dl (8.5-10.1); Creatinine Clr Calc Pharmacy 120.8 ml/min; Est GFR (African American) 106.7 ml/min; Est GFR (Non-African American) 92.1 ml/min; Magnesium 2.3 mg/dl (1.8-2.4); Potassium 3.3 mmol/L (3.5-5.1)
[2020-12-25] MEDS ORDERED: POTASSIUM CHLORIDE CRTAB 20 MEQ TABCR PO STA (10:02)
[2020-12-25] MEDS ORDERED: hydrALAZINE HCL 20 MG/ML VIAL IV PRN (10:03)
[2020-12-25] MEDS: ceFAZolin 2000MG 2,000 MG/15 ML SYR IV SCH ×2 (10:14→17:25)
[2020-12-25] MEDS: POTASSIUM CHLORIDE 40 MEQ in SODIUM CHLORIDE 0.9% 1000ML 1,000 ML IV SCH (10:53)
[2020-12-25] MEDS ORDERED: GADOBUTROL 65ML VIAL IV ONE (13:31)
--- NOTE | 2020-12-25 14:31 | Magnetic Resonance Report ---
MR wrist RT wo/w con CLINICAL HISTORY: 55 years-old Male with r/o worsening infection. Worsening soft tissue infection of the right upper extremity with recent surgery COMPARISON: Right wrist MRI 12/23/2020 TECHNIQUE: Multiplanar, multi sequence MRI of the right wrist was performed both with and without the use of 11.1 mL Gadavist FINDINGS: INTRINSIC LIGAMENTS: The scapholunate and lunotriquetral ligaments are intact and unremarkable in harry earance. No evidence of scapholunate or lunotriquetral interval widening. TFCC: Small perforation of the thin zone articular disc is suggested. The meniscal homologue, the ext ensor carpi ulnaris tendon, the volar and dorsal distal radioulnar ligaments and the ulnolunate and u lnotriquetral ligaments appear intact. BONE MARROW: No acute fracture, osseous erosion or marrow replacing process. JOINT SPACES: Multifocal osteoarthritis includes mild radiocarpal with severe first carpometacarpal o steoarthritis. Trace first carpal metacarpal joint effusion is likely on a de generative basis. No in tra-articular loose body identified. CARPAL TUNNEL: The flexor tendons and median nerve are unremarkable in appearance. The flexor retinac ulum is unremarkable. The ulnar nerve appears unremarkable. Mild to moderate edema within the carpal tunnel is likely reactive secondary to the soft tissue findings as below. EXTENSOR TENDONS: Tendinosis of the first and second extensor compartments. Complex tenosynovitis of the first through fourth extensor compartments redemonstrated. The extensor pollicis longus tendon no w demonstrates full-thickness tearing at the level of the distal radius on image 6 of series 13. Comp lete rupture of the fourth extensor tendons extending for a length of over 4 cm is redemonstrated. In terval postoperative changes of the dorsal hand and first through fourth extensor compartments. Skin gregorio with micrometallic artifact limits the study. There is a large peripherally enhancing partial ly imaged deep subcutaneous collection of the dorsal distal forearm, wrist and hand measuring over 4 x 11 cm in craniocaudal and transverse dimensions and 1.4 cm in AP dimension. The collection demonstr ates intermediate T1 signal and is T2 hyperintense containing internal debris SOFT TISSUES: There is extensive diffuse subcutaneous and deep tissue edema with intramuscular edema. Peripheral enhancement of the first through fourth extensor compartments is noted with a peripherall y enhancing fluid collection contiguous with the aforementioned extensor compartments as above. IMPRESSION: 1. Interval postoperative changes of the dorsal hand and wrist. Artifact from the skin gregorio limits the study. 2. Large peripherally enhancing partially imaged complex mixed signal fluid collection of the dorsal distal forearm, hand and wrist measures over 4 x 11 cm. This is contiguous with the second through fo urth extensor compartments. Abscess, hematoma or complex postoperative seroma are differential consid erations. 3. Rupture of the extensor pollicis longus tendon is new from 12/23/2020. Ruptured fourth extensor com partment tendons with retraction redemonstrated. 4. Diffuse cellulitis with myositis and infectious tenosynovitis changes are redemonstrated. ACT 112: Negative or not required by law. The above report was generated using voice recognition software. It may contain grammatical, syntax o r spelling errors. Electronically signed by: Randall Valentino M.D. 12/25/2020 2:30 PM
--- NOTE | 2020-12-25 15:40 | Electrocardiogram Report ---
Test Reason : Blood Pressure : / mmHG Vent. Rate : 091 BPM Atrial Rate : 091 BPM P-R Int : 146 ms QRS Dur : 102 ms QT Int : 360 ms P-R-T Axes : 064 010 065 degrees QTc Int : 442 ms Normal sinus rhythm Normal ECG When compared with ECG of 21-DEC-2020 16:03, No significant change was found Confirmed by Satish Plummer ([id number]) on 12/25/2020 3:39:59 PM Referred By: REFERRED SELF Confirmed By:Satish Plummer
[2020-12-25] MEDS: AMITRIPTYLINE HCL 100 MG TAB PO SCH (21:13)
[2020-12-25] MEDS: SODIUM CHLORIDE 0.9% 1000ML 1,000 ML IV SCH (21:44)
[2020-12-26] MEDS: ACETAMINOPHEN 325 MG TAB PO SCH ×5 (00:58→23:58)
[2020-12-26] MEDS: ceFAZolin 2000MG 2,000 MG/15 ML SYR IV SCH ×3 (01:00→17:44)
[2020-12-26] MEDS: POTASSIUM CHLORIDE 40 MEQ in SODIUM CHLORIDE 0.9% 1000ML 1,000 ML IV SCH ×3 (06:09→23:56)
[2020-12-26 06:15] LABS: Basophils # (auto) 0.02 K/uL (0-0.2); Basophils % (auto) 0.4 %; Eosinophils # (auto) 0.09 K/uL (0-0.5); Eosinophils % (auto) 1.8 %; Hematocrit (blood only) 31.1 % (42-52); Hemoglobin 10.4 g/dL (14.0-18.0); Immature Granulocytes % (auto) 3.9 %; Lymphocytes # (auto) 0.82 K/uL (1.2-3.4); Lymphocytes % (auto) 16.1 %; Mean Corpuscular Hemoglobin 31.8 pg (25-34); Mean Corpuscular Hgb Conc 33.4 g/dL (32-36); Mean Corpuscular Volume 95.1 fL (80-100); Mean Platelet Volume 8.1 fL (7.4-10.4); Monocytes # (auto) 0.57 K/uL (0.11-0.59); Monocytes % (auto) 11.2 %; Neutrophils # (auto) 3.39 K/uL (1.4-6.5); Neutrophils % (auto) 66.6 %; Platelet Count 220 K/uL (130-400); RDW Coefficient of Variation 13.9 % (11.5-14.5); RDW Standard Deviation 48.7 fL (36.4-46.3); Red Blood Count 3.27 M/uL (4.7-6.1); White Blood Count 5.09 K/uL (4.8-10.8)
[2020-12-26 06:45] LABS: BUN Creatinine Ratio 8.6 (10-20); Calcium 8.1 mg/dl (8.5-10.1); Creatinine Clr Calc Pharmacy 124.8 ml/min; Est GFR (Non-African American) 95.8 ml/min; Magnesium 2.1 mg/dl (1.8-2.4); Potassium 3.4 mmol/L (3.5-5.1)
[2020-12-26] MEDS: DOCUSATE SODIUM/SENNA 50/8.6MG TAB PO SCH (08:37)
[2020-12-26] MEDS: MULTIVITAMIN TAB PO SCH (08:37)
[2020-12-26] MEDS: lisinopril 20 MG TAB PO SCH (08:38)
[2020-12-26] MEDS: POLYETHYLENE (MIRALAX) 17 GM PACK PO SCH (08:38)
[2020-12-26] MEDS: MoRPHine SULFATE CR 15 MG TABCR PO SCH ×2 (08:45→21:36)
[2020-12-26] MEDS: DOCUSATE SODIUM 100 MG CAP PO SCH ×2 (08:45→21:36)
--- NOTE | 2020-12-26 09:52 | Orthopedic Progress Note ---
Date of Service December 26, 2020 Saw him at the bedside today Assessment & Plan (1) Extensor tenosynovitis of right wrist: Plan: This point in time he exhibits significant improvement. We will continue to observe continue elevation. Continue antibiotics for MSSA. No surgical indications at this point in time Admission and Anticipated Discharge Date Admission Date: December 21, 2020 Subjective He states he is doing well and pain has improved significantly compared to yesterday Physical Exam Musculoskeletal: He has no evidence of fluctuance. Swelling and erythema are decreased today. Is a small amount of fluid collection in the distal forearm region. I do not identify any specific or discrete abscess. Results & Data ([facility]) Vital Signs (Past 12 Hours) Vital Signs Temp Pulse Pulse Resp BP Pulse Ox 12/26/20 07:07 36.6 C 85 16 145/71 H 97 12/25/20 23:01 36.8 C 77 17 129/77 95
[2020-12-26] MEDS: POTASSIUM CHLORIDE CRTAB 20 MEQ TABCR PO SCH ×2 (11:24→17:08)
[2020-12-26] MEDS: ONDANSETRON INJ 2 MG/ML 2 ML VIAL IV PRN (11:24)
[2020-12-26] MEDS: HEPARIN SOD 5,000 UNIT/0.5 ML VIAL SQ SCH ×2 (14:31→22:10)
--- NOTE | 2020-12-26 16:09 | Hospitalist Progress Note ---
Date of Service December 26, 2020 Assessment & Plan (1) MSSA (methicillin susceptible Staphylococcus aureus) infection: Plan: Switched to IV cefazolin per ID recommendations for total of 6 weeks of antibiotics. If no further surgery planned will place PICC line. Source - cellulitis, tenosynovitis and septic arthritis 1st [facility] Initial blood cultures fortunately negative Continue pain control with MS Contin and oxycodone as needed, hopefully can de- escalate as surgery clears infection Wound VAC in place Appreciate orthopedic management of this (2) Cellulitis of multiple sites of right hand and fingers: Plan: As above. (3) Extensor tenosynovitis of right wrist: Plan: Orthopedic management as above (4) Septic arthritis: Plan: 6 weeks IV Abx as above (5) Asthma: Plan: No acute exacerbation not on meds (6) HTN (hypertension), benign: Plan: Monitor BP off HCTZ. Continue lisinopril. Hydralazine PRN. (7) Hypokalemia: Plan: Stop HCTZ as most likely culprit of this. NSS + 40 meq @ 100 ml/hr, addition 20 meq K Cl PO now Plan: VTE Prophylaxis - heparin SQ 5000 units Q8H Diet - Low Na diet Disposition - continue on med/surg Admission and Anticipated Discharge Date Admission Date: December 21, 2020 Subjective Improving hand swelling and pain today. Severity of pain for the first time controlled with oxycodone and morphine ER. Severity currently 4/10. No fever or chills. Review of Systems Review of Systems: All systems reviewed & are unremarkable except as noted in HPI & below Physical Exam Constitutional: WD/WN, vitals as above Respiratory: normal respiratory effort, lungs clear to auscultation Cardiovascular: RRR, no murmur, no edema Gastrointestinal (Abdomen): normal bowel sounds, soft, nontender, no hepatosplenomegaly Skin: no rashes, warm and dry (Left handed patient. Right hand is swollen with wound vac swollen decreased) Psychiatric: A+Ox3, euthymic affect Results & Data Results & Data ([facility]) Vital Signs (Past 12 Hours) Vital Signs Temp Pulse Resp BP Pulse Ox 12/26/20 15:15 37.2 C 90 16 142/80 H 99 12/26/20 07:07 36.6 C 85 16 145/71 H 97 PG Care Time/CCT Total # of Minutes Spent Total Time Spent with Patient: Total time spent is greater than 50% in coordination of care (as documented) at patient's floor/unit and/or counseling patient: Coding Level of Care Code 98454 Subseq Hosp Care Lvl 2 Diagnoses MSSA (methicillin susceptible Staphylococcus aureus) infection A49.01 Cellulitis of multiple sites of right hand and fingers L03.011; L03.113 Extensor tenosynovitis of right wrist M65.831 Septic arthritis M00.9 Asthma J45.909 HTN (hypertension), benign I10 Hypokalemia E87.6
[2020-12-26] MEDS: oxyCODONE HCL IR 5 MG TAB (IMMEDIATE RELEASE) PO PRN (17:12)
[2020-12-26] MEDS: AMITRIPTYLINE HCL 100 MG TAB PO SCH (21:36)
[2020-12-26] MEDS: CALCIUM CARBONATE 500 MG CHEWABLE TAB PO PRN (22:10)
[2020-12-27] MEDS: ceFAZolin 2000MG 2,000 MG/15 ML SYR IV SCH ×4 (02:11→21:51)
[2020-12-27] MEDS: ACETAMINOPHEN 325 MG TAB PO SCH ×2 (06:13→12:28)
[2020-12-27] MEDS: HEPARIN SOD 5,000 UNIT/0.5 ML VIAL SQ SCH ×3 (06:14→21:52)
--- NOTE | 2020-12-27 08:26 | Orthopedic Progress Note ---
Date of Service December 27, 2020 Assessment & Plan (1) Extensor tenosynovitis of right wrist: Plan: Postop day 4 status post I&D right hand Patient continues to improve. No further surgery needed at this time. Continue IV antibiotics ;planning for PICC line and 6 weeks of IV antibiotics at home. Continue daily dressing changes. Admission and Anticipated Discharge Date Admission Date: December 21, 2020 Subjective Postop day 4 Patient sitting up in bed awake and alert. He states that he feels his hand and arm are continuing to improve. Less discomfort. He feels he has less swelling. Pain controlled. Physical Exam Physical Exam: Dressing with mild serous drainage. Staple line intact. Continues with some mild erythema around the dorsum of the hand and over the wrist. Much less swelling today and less mid forearm erythema. Most of the forearm is nontender. No pain proximal. Fingers are swollen consistent with surgery. Cap refills less than 2 seconds. Results & Data ([facility]) Vital Signs (Past 12 Hours) Vital Signs Temp Pulse Pulse Resp BP Pulse Ox 12/27/20 07:56 36.5 C 83 16 130/83 95 12/26/20 23:20 37 C 88 16 127/90 97
[2020-12-27] MEDS: POTASSIUM CHLORIDE 40 MEQ in SODIUM CHLORIDE 0.9% 1000ML 1,000 ML IV SCH (08:52)
[2020-12-27] MEDS: POTASSIUM CHLORIDE CRTAB 20 MEQ TABCR PO SCH ×2 (08:59→18:26)
[2020-12-27] MEDS: MULTIVITAMIN TAB PO SCH (08:59)
[2020-12-27] MEDS: lisinopril 20 MG TAB PO SCH (08:59)
[2020-12-27] MEDS: DOCUSATE SODIUM/SENNA 50/8.6MG TAB PO SCH (08:59)
[2020-12-27] MEDS: DOCUSATE SODIUM 100 MG CAP PO SCH ×2 (09:00→21:54)
[2020-12-27] MEDS: POLYETHYLENE (MIRALAX) 17 GM PACK PO SCH (09:01)
[2020-12-27] MEDS: MoRPHine SULFATE CR 15 MG TABCR PO SCH ×2 (09:20→21:53)
[2020-12-27 10:44] LABS: C Reactive Protein 8.75 mg/dl (0-0.29); Calcium 8.5 mg/dl (8.5-10.1); Creatinine Clr Calc Pharmacy 109.1 ml/min; Est GFR (African American) 94.3 ml/min; Est GFR (Non-African American) 81.4 ml/min; Potassium 4.4 mmol/L (3.5-5.1)
[2020-12-27] MEDS: oxyCODONE HCL IR 5 MG TAB (IMMEDIATE RELEASE) PO PRN ×2 (12:27→19:16)
--- NOTE | 2020-12-27 13:59 | Hospitalist Progress Note ---
Date of Service December 27, 2020 Assessment & Plan (1) MSSA (methicillin susceptible Staphylococcus aureus) infection: Plan: Continue IV cefazolin per ID recommendations for total of 6 weeks of antibiotics. PICC line ordered and consent gained. Pharmacy to adjust dosing to be more appropriate for home administration. Source - cellulitis, tenosynovitis and septic arthritis 1st [facility] Initial blood cultures fortunately negative Continue pain control with MS Contin (reduced to 15mg PO BID today and will discontinue tomorrow in anticipation of discharge) and oxycodone as needed Wound VAC in place Appreciate orthopedic management - no further surgery planned at current time. (2) Cellulitis of multiple sites of right hand and fingers: Plan: As above. (3) Extensor tenosynovitis of right wrist: Plan: Orthopedic management as above (4) Septic arthritis: Plan: 6 weeks IV Abx as above (5) Asthma: Plan: No acute exacerbation not on meds (6) HTN (hypertension), benign: Plan: Monitor BP off HCTZ. Continue lisinopril. Hydralazine PRN. (7) Hypokalemia: Plan: Stop HCTZ as most likely culprit of this. Potassium chloride 20 meq PO BID Plan: VTE Prophylaxis - heparin SQ 5000 units Q8H Diet - Low Na diet Disposition - continue on med/surg Admission and Anticipated Discharge Date Admission Date: December 21, 2020 Subjective Initially felt better this morning but developed throbbing pain at base of right thumb around lunch time today but controlled with oxycodone 10mg. Tolerating reduced dose of Morphine ER so far. Swelling and erythema improving. No fever or chills. Review of Systems Review of Systems: All systems reviewed & are unremarkable except as noted in HPI & below Physical Exam Constitutional: WD/WN, vitals as above Respiratory: normal respiratory effort, lungs clear to auscultation Cardiovascular: RRR, no murmur, no edema Gastrointestinal (Abdomen): normal bowel sounds, soft, nontender, no hepatosplenomegaly Psychiatric: A+Ox3, euthymic affect Results & Data Results & Data ([facility]) Vital Signs (Past 12 Hours) Vital Signs Temp Pulse Resp BP Pulse Ox 12/27/20 07:56 36.5 C 83 16 130/83 95 PG Care Time/CCT Total # of Minutes Spent Total Time Spent with Patient: Total time spent is greater than 50% in coordination of care (as documented) at patient's floor/unit and/or counseling patient: Coding Level of Care Code 23406 Subseq Hosp Care Lvl 2 Diagnoses MSSA (methicillin susceptible Staphylococcus aureus) infection A49.01 Cellulitis of multiple sites of right hand and fingers L03.011; L03.113 Extensor tenosynovitis of right wrist M65.831 Septic arthritis M00.9 Asthma J45.909 HTN (hypertension), benign I10 Hypokalemia E87.6
[2020-12-27] MEDS: ACETAMINOPHEN 500 MG TAB PO SCH ×3 (14:08→21:54)
[2020-12-27] MEDS: AMITRIPTYLINE HCL 100 MG TAB PO SCH (21:53)
[2020-12-27] MEDS: CALCIUM CARBONATE 500 MG CHEWABLE TAB PO PRN (22:01)
[2020-12-28] MEDS: oxyCODONE HCL IR 5 MG TAB (IMMEDIATE RELEASE) PO PRN ×2 (03:24→11:22)
[2020-12-28] MEDS: HEPARIN SOD 5,000 UNIT/0.5 ML VIAL SQ SCH (05:56)
[2020-12-28] MEDS: ceFAZolin 2000MG 2,000 MG/15 ML SYR IV SCH (05:57)
[2020-12-28] MEDS: ACETAMINOPHEN 500 MG TAB PO SCH (07:56)
[2020-12-28] MEDS: MULTIVITAMIN TAB PO SCH (08:00)
[2020-12-28] MEDS: POTASSIUM CHLORIDE CRTAB 20 MEQ TABCR PO SCH (08:00)
[2020-12-28] MEDS: lisinopril 20 MG TAB PO SCH (08:00)
[2020-12-28] MEDS: DOCUSATE SODIUM 100 MG CAP PO SCH (08:00)
[2020-12-28] MEDS: DOCUSATE SODIUM/SENNA 50/8.6MG TAB PO SCH (08:01)
[2020-12-28] MEDS: POLYETHYLENE (MIRALAX) 17 GM PACK PO SCH (08:01)
[2020-12-28 08:28] LABS: Hemoglobin 11.2 g/dL (14.0-18.0); Mean Corpuscular Hemoglobin 31.9 pg (25-34); Mean Corpuscular Hgb Conc 32.9 g/dL (32-36); Mean Corpuscular Volume 96.9 fL (80-100); Mean Platelet Volume 7.9 fL (7.4-10.4); Platelet Count 250 K/uL (130-400); RDW Coefficient of Variation 13.9 % (11.5-14.5); RDW Standard Deviation 49.4 fL (36.4-46.3); Red Blood Count 3.51 M/uL (4.7-6.1)
[2020-12-28 08:49] LABS: BUN Creatinine Ratio 6.9 (10-20); Calcium 9.4 mg/dl (8.5-10.1); Creatinine Clr Calc Pharmacy 102.1 ml/min; Est GFR (African American) 87.1 ml/min; Est GFR (Non-African American) 75.2 ml/min; Potassium 3.9 mmol/L (3.5-5.1)
--- NOTE | 2020-12-28 11:17 | Discharge Summary ---
Date of Service December 28, 2020 Discharge Data Allergies Allergy/AdvReac Type Severity Reaction Status Date / Time No Known Allergies Allergy Unknown Verified 12/21/20 16:17 Consultations 12/21/20 19:37 Consult Orthopedic Surgery Routine 12/22/20 08:29 Consult Infectious Diseases Routine Procedures Performed Operation Date: 12/23/20 10:00 Actual Procedures p Right hand irrigation and debridement of abscess, extensor tenosynovectomy(Right) - Phu Ramírez MD Ordered Studies 12/21/20 15:12 CT forearm RT w con Stat CT hand RT w con Stat CT humerus RT w con Stat 12/22/20 12:40 MR forearm RT wo con Routine 12/23/20 09:29 MR wrist RT wo/w con Routine 12/25/20 09:11 MR wrist RT wo/w con Urgent Hospital Course (1) MSSA (methicillin susceptible Staphylococcus aureus) infection: Continue IV cefazolin per ID recommendations for total of 6 weeks of antibiotics. PICC line ordered and consent gained. Pharmacy to adjust dosing to be more appropriate for home administration. Source - cellulitis, tenosynovitis and septic arthritis 1st [facility] Initial blood cultures fortunately negative Continue pain control with MS Contin (reduced to 15mg PO BID today and will d iscontinue tomorrow in anticipation of discharge) and oxycodone as needed Wound VAC in place Appreciate orthopedic management - no further surgery planned at current time. (2) Cellulitis of multiple sites of right hand and fingers: As above. (3) Extensor tenosynovitis of right wrist: Orthopedic management as above (4) Septic arthritis: 6 weeks IV Abx as above (5) Asthma: No acute exacerbation not on meds (6) HTN (hypertension), benign: Monitor BP off HCTZ. Continue lisinopril. Hydralazine PRN. (7) Hypokalemia: Stop HCTZ as most likely culprit of this. Potassium chloride 20 meq PO BID VTE Prophylaxis - heparin SQ 5000 units Q8H Diet - Low Na diet Disposition - continue on med/surg Discharge Plan Discharge Items Patient Disposition: Home - Self-Care Reason For Visit: CELLULITIS OF HAND Discharge Diagnosis: Extensor tenosynovitis of right hand Right wrist septic arthritis Right dorsal hand abscess Methicillin sensitive staph aureus (MSSA) infection Low potassium Activity: Resume your previous activity Non-emergency contact: Surgeon Call non-emergency contact if: you have any medication questions and your symptoms worsen Follow-up/Referrals: Phu Ramírez MD [Physician] - 01/02/21 (Follow up to be arranged) Obi Gee Jr, [Primary Care Provider] - Diet: Low Sodium (2gm) Mike Attending Provider Instructions: You were admitted to [facility] from December 21 - 2020 due to right hand pain, redness and swelling with associated fever and chills. You were diagnosed with methicillin sensitive staph aureus (MSSA) infection causing septic wrist arthritis, dorsal abscess and tenosynovitis with ruptured extensor tendons. This was treated with washout surgery performed by Dr Ramírez on December 23. Initially broad spectrum antibiotics were started but switched to Ancef once MSSA confirmed. Please continue on 6 weeks of antibiotics as ordered and contact you primary care physician for weekly labs while on antibiotics. CBC/CMP. Please continue to elevated the wrist as much as possible. Dressing changes as below. Please follow up with Dr Ramírez next week. You were also noted to have low potassium levels. This is most likely secondary to your hydrochlorothiazide blood pressure medication. To compensate for this your lisinopril has been increased. Please also take 20 meq potassium chloride supplementation and follow up with your primary care physician for ongoing management of this. Kind regards, Dr Carlos Mckeon Duct Layer Helper Provider Instructions: Orthopedic dressing changes: Dry sterile dressing changes once a day with Adaptic Pending Studies at Discharge: No Stand-Alone Forms: My [facility], Smoking Cessation Medications and DC Order Prescriptions: New lisinopril 40 mg tablet 40 mg PO DAILY Qty: 30 RF: 0 potassium chloride 20 mEq tablet extended release 20 meq PO DAILY Qty: 30 RF: 0 cefazolin 1 gram recon soln 2 g IV Q8H 42 Days Qty: 25 RF: 0 Continued oxycodone-acetaminophen [Percocet] 5-325 mg tablet 1 tab PO Q4H PRN (Reason: Pain) RF: 0 medical marijuana 1 dose PO UD RF: 0 amitriptyline 100 mg Tablet 200 mg PO HS RF: 0 sildenafil (pulm.hypertension) 20 mg tablet 40 - 100 mg PO UD RF: 0 Discontinued lisinopril-hydrochlorothiazide 20-25 mg tablet 1 tab PO DAILY RF: 0 Discharge Orders: Discharge Order (Routine); Ordered 12/28/20 Ordered By: Carlos Gamez Admission Data Admit Date/Time: 12/21/20 19:44 Attending Provider: Carlos Gamez Admit Provider: Ketan Roman Primary Care Provider: Obi Gee Jr Other Providers: Phu Ramírez ; Christopher Galvan ; Seema Wynne ; Mele Farr I. ; Addy Rodríguez II ; Deidra Hoyt ; Devan Gutierrez ; [facility] Coding Diagnoses MSSA (methicillin susceptible Staphylococcus aureus) infection A49.01 Cellulitis of multiple sites of right hand and fingers L03.011; L03.113 Extensor tenosynovitis of right wrist M65.831 Septic arthritis M00.9 Asthma J45.909 HTN (hypertension), benign I10 Hypokalemia E87.6
== END 2020-12-28 12:32 | disposition home health service (06) | DRG 513 ==
LOC: ED 14:56 → 3N 19:44 → SUATTDRO 19:44 → 3N 20:50